=== PATIENT | female | born 1950 | race American Indian/Alaskan Native ===

== ENCOUNTER 2016-11-14 19:27 | Emergency (ER) | payer MEDICARE ==
[2016-11-14 20:00] VITALS: BP 192/101
[2016-11-14 21:07] LABS: Bacteria,Urine 1+ /HPF (Negative); Bilirubin,Urine NEG (Negative); Blood,Urine MOD (Negative); Ketones,Urine NEG (Negative); Leukocyte Esterase,Urine TR (Negative); Mucus,Urine FEW /HPF; Nitrite,Urine NEG (Negative); Urobilinogen,Urine < 2.0 mg/dL (<2.0)
--- NOTE | 2016-11-18 15:03 | ED Elopement Review ---
ED Pt Elopement review - Results review Lab results: Laboratory Tests 11/14/16 20:15 Urine Color Yellow Urine Turbidity Clear Urine pH 5.0 Ur Specific [place] 1.017 Urine Protein 30 mg/dl Urine Glucose (UA) >=500 Urine Ketones Neg Urine Blood Mod Urine Nitrite Neg Urine Bilirubin Neg Urine Urobilinogen < 2.0 Ur Leukocyte Esterase Tr Urine WBC (Auto) 1.0 Urine RBC (Auto) 3.0 U Epithel Cells (Auto) 1.0 Urine Bacteria (Auto) 1+ Urine Mucus Few - Call Back decision Pt Call Back Decision: Pt to F/U with PMD
== END 2016-11-15 05:42 | disposition left against medical advice (07) ==
LOC: ED 19:27
DX: Z53.21 Procedure and treatment not carried out due to patient leaving prior to being seen by health care provider (principal)
CPT/HCPCS: 81001

== ENCOUNTER 2020-10-26 10:58 | Emergency (ER) | payer MEDICARE ==
[2020-10-26 13:05] VITALS: BP 117/94
--- NOTE | 2020-10-26 15:10 | XRay Report ---
Left shoulder 3 views INDICATION: Fall FINDINGS: There is glenohumeral and AC degenerative change. Enthesophyte extending inferiorly from th e acromion. No displaced fracture or dislocation Signer Name: Terrell Couch MD Signed: 10/26/2020 3:06 PM Workstation Name: [id number]
--- NOTE | 2020-10-26 15:33 | Emergency Department Report ---
ED Fall HPI - General Chief Complaint: Fall Stated Complaint: PAIN/FALL YESTERDAY Time Seen by Provider: 10/26/20 13:55 Source: patient Mode of arrival: Wheelchair - History of Present Illness Initial Comments: Pt is 70 yo female who presents to the ED with c/o fall that occurred last night. she states she tripped over her feet and fell on the floor. she states she hit her head on a shoe rack. she denies any ROBERT. she states she is experiencing left shoulder pain and had some mild nausea earlier. she denies any LOC, vomiting, vision changes, numbness, weakness, bowel or bladder incontinence, neck pain, back pain, or any other injury. allergy: codeine. she states she is on eliquis. - Related Data Previous Rx's Medication Instructions Recorded Last Taken Type Digoxin [Lanoxin] 0.125 mg PO DAILY@1700 #30 tablet 07/16/15 Unknown Rx Spironolactone [Aldactone] 12.5 mg PO QDAY #30 tablet 07/16/15 Unknown Rx carvediloL [Coreg] 12.5 mg PO BID 60 Days tablet 07/16/15 Unknown Rx lisinopriL [Zestril TAB] 20 mg PO BID #60 tablet 07/16/15 Unknown Rx Acetaminophen [Tylenol] 650 mg PO Q8HR PRN #20 capsule 10/26/20 Unknown Rx Allergies Allergy/AdvReac Type Severity Reaction Status Date / Time codeine Allergy Swelling Verified 07/08/15 00:01 ED Review of Systems ROS: Stated complaint: PAIN/FALL YESTERDAY Other details as noted in HPI Comment: All other systems reviewed and negative ED Past Medical Hx - Past Medical History Previous Medical History?: Yes Hx Hypertension: Yes Hx Congestive Heart Failure: Yes Hx Diabetes: Yes Hx Psychiatric Treatment: Yes (depression) Hx COPD: Yes Additional medical history: sleep apnea - Surgical History Past Surgical History?: Yes Hx Coronary Stent: Yes Additional Surgical History: partial hysterectomy - Social History Smoking Status: Never Smoker Substance Use Type: None - Medications Home Medications: Home Medications Medication Instructions Recorded Confirmed Last Taken Type Digoxin [Lanoxin] 0.125 mg PO DAILY@1700 #30 tablet 07/16/15 Unknown Rx Spironolactone [Aldactone] 12.5 mg PO QDAY #30 tablet 07/16/15 Unknown Rx carvediloL [Coreg] 12.5 mg PO BID 60 Days tablet 07/16/15 Unknown Rx lisinopriL [Zestril TAB] 20 mg PO BID #60 tablet 07/16/15 Unknown Rx Acetaminophen [Tylenol] 650 mg PO Q8HR PRN #20 capsule 10/26/20 Unknown Rx ED Physical Exam - General Limitations: Physical Limitation General appearance: alert, in no apparent distress - Head Head exam: Present: atraumatic, normocephalic - Eye Eye exam: Present: normal appearance, PERRL, EOMI. Absent: periorbital swelling, periorbital tenderness Pupils: Present: normal accommodation - ENT ENT exam: Present: mucous membranes moist - Neck Neck exam: Present: normal inspection, full ROM. Absent: tenderness, meningismus - Respiratory Respiratory exam: Present: normal lung sounds bilaterally. Absent: respiratory distress, wheezes, rales, rhonchi, stridor, chest wall tenderness, accessory muscle use, decreased breath sounds, prolonged expiratory - Cardiovascular Cardiovascular Exam: Present: regular rate, normal rhythm, normal heart sounds. Absent: systolic murmur, diastolic murmur, rubs, gallop - Extremities Exam Extremities exam: Present: normal inspection, full ROM, other (no bony ttp of the LUE, FROM of the LUE, no deformity, no sulcus sign, clavicles are equal, no clavicular ttp, neurovascularly intact, there is a left AV graft with palpable thrill). Absent: tenderness - Back Exam Back exam: Present: normal inspection, full ROM. Absent: paraspinal tenderness, vertebral tenderness - Neurological Exam Neurological exam: Present: alert, oriented X3, CN II-XII intact, normal gait. Absent: motor sensory deficit - Psychiatric Psychiatric exam: Present: normal affect, normal mood - Skin Skin exam: Present: warm, dry, intact ED Course Vital Signs 10/26/20 13:03 Temperature 98.1 F Pulse Rate 98 H Respiratory 20 Rate Blood Pressure 117/94 O2 Sat by Pulse 95 Oximetry ED Medical Decision Making - Radiology Data Radiology results: report reviewed Ordering Physician: JOE SILVA Date of Service: 10/26/20 Procedure(s): CT head/brain wo con Accession Number(s): [id number] cc: JOE SILVA CT head without contrast INDICATION : Fall, hit head.. TECHNIQUE: Axial imaging performed from the skull apex through the skull base without the use of contrast. All CT scans at this location are performed using CT dose reduction for ALARA by means of automated exposure control. COMPARISON: None FINDINGS: No evidence of intracranial hemorrhage. No mass effect, midline shift, or herniation. The ventricles appear symmetric and age-appropriate in size. Periventricular hypodensities are suggestive of chronic microvascular ischemic change. No evidence of displaced skull fracture. Paranasal sinuses and mastoid air cells are well aerated and not opacified. Located within the fat overlying the right temporalis muscle is a 1.2 x 0.7 cm soft tissue density (Hounsfield units 45). IMPRESSION: No evidence of acute intracranial injury. Located within the fat overlying the right temporalis muscle is a 1.2 x 0.7 cm soft tissue density. This is of unclear significance or etiology. Question whether the patient sustained injury in this region as a small superficial hematoma is a possibility. If patient has not had any trauma to this region, consider a nonemergent MRI with and without contrast to assess for any enhancement and for further characterization. Signer Name: Ventura Sol MD Signed: 10/26/2020 3:50 PM Workstation Name: [id number] Transcribed By: ROD Dictated By: VENTURA SOL MD Electronically Authenticated By: VENTURA SOL MD Signed Date/Time: 10/26/20 1550 DD/ 1543 TD/TT: Print Ordering Physician: JOE SILVA Date of Service: 10/26/20 Procedure(s): XR shoulder 2+V LT Accession Number(s): [id number] cc: JOE SILVA Fluoro Time In Minutes: Left shoulder 3 views INDICATION: Fall FINDINGS: There is glenohumeral and AC degenerative change. Enthesophyte extending inferiorly from the acromion. No displaced fracture or dislocation Signer Name: Terrell Couch MD Signed: 10/26/2020 3:06 PM Workstation Name: [id number] Transcribed By: FLOWER Dictated By: RENEE COUCH MD Electronically Authenticated By: RENEE COUCH MD Signed Date/Time: 10/26/20 1506 DD/ 1503 TD/TT: Print - Medical Decision Making Pt is 70 yo female who presents to the ED with c/o fall that occurred last night. she states she tripped over her feet and fell on the floor. she states she hit her head on a shoe rack. she denies any ROBERT. she states she is experiencing left shoulder pain and had some mild nausea earlier. she denies any LOC, vomiting, vision changes, numbness, weakness, bowel or bladder incontinence, neck pain, back pain, or any other injury. allergy: codeine. she states she is on eliquis. Vitals are normal. On exam:no bony ttp of the LUE, FROM of the LUE, no deformity, no sulcus sign, clavicles are equal, no clavicular ttp, neurovascularly intact, there is a left AV graft with palpable thrill, no neuro deficits on exam, she is able to ambulate. X-ray left shoulder: FINDINGS: There is glenohumeral and AC degenerative change. Enthesophyte extending inferiorly from the acromion. No displaced fracture or dislocation. CT head without contrast: No evidence of acute intracranial injury. Located within the fat overlying the right temporalis muscle is a 1.2 x 0.7 cm soft tissue density.This is of unclear significance or etiology. Question whether the patient sustained injury in this region as a small superficial hematoma is a possibility. If patient has not had any trauma to this region, consider a nonemergent MRI with and without contrast to assess for any enhancement and for further characterization. No signs of hematoma on scalp examination, patient given her CT report to follow-up with her primary care doctor. Discussed all results with patient answer questions. Patient given prescription for Tylenol. Advised patient Please take medication as prescribed. Follow-up with your primary care doctor for reexamination. Return to emergency room for any new or worsening symptoms. please take CT report to your primary care doctor Critical care attestation.: If time is entered above; I have spent that time in minutes in the direct care of this critically ill patient, excluding procedure time. ED Disposition Clinical Impression: Superficial swelling of scalp Fall Qualifiers: Encounter type: initial encounter Qualified Code(s): W19.XXXA - Unspecified fall, initial encounter Left shoulder pain Qualifiers: Chronicity: acute Qualified Code(s): M25.512 - Pain in left shoulder Disposition: - TO HOME OR SELFCARE Is pt being admited?: No Does the pt Need Aspirin: No Condition: Stable Instructions: Shoulder Pain, Head Injury, Adult Additional Instructions: Please take medication as prescribed. Follow-up with your primary care doctor for reexamination. Return to emergency room for any new or worsening symptoms. please take CT report to your primary care doctor Prescriptions: Acetaminophen [Tylenol] 650 mg PO Q8HR PRN #20 capsule PRN Reason: pain Referrals: PRIMARY CARE, [Primary Care Provider] - 2-3 Days Time of Disposition: 16:06 Print Language: WELSH
--- NOTE | 2020-10-26 15:54 | Cat Scan Report ---
CT head without contrast INDICATION : Fall, hit head.. TECHNIQUE: Axial imaging performed from the skull apex through the skull base without the use of con trast. All CT scans at this location are performed using CT dose reduction for ALARA by means of aut omated exposure control. COMPARISON: None FINDINGS: No evidence of intracranial hemorrhage. No mass effect, midline shift, or herniation. The ventricles appear symmetric and age-appropriate in size. Periventricular hypodensities are suggestive of chronic microvascular ischemic change. No evidence of displaced skull fracture. Paranasal sinuses and mastoi d air cells are well aerated and not opacified. Located within the fat overlying the right temporalis muscle is a 1.2 x 0.7 cm soft tissue density (H ounsfield units 45). IMPRESSION: No evidence of acute intracranial injury. Located within the fat overlying the right temporalis muscle is a 1.2 x 0.7 cm soft tissue density. T his is of unclear significance or etiology. Question whether the patient sustained injury in this reg ion as a small superficial hematoma is a possibility. If patient has not had any trauma to this regio n, consider a nonemergent MRI with and without contrast to assess for any enhancement and for further characterization. Signer Name: Ventura Kuhn MD Signed: 10/26/2020 3:50 PM Workstation Name: [id number]
== END 2020-10-27 04:18 | disposition home or self-care (01) ==
LOC: ED 10:58
DX: M25.512 Pain in left shoulder (principal); R22.0 Localized swelling, mass and lump, head; W19.XXXA Unspecified fall, initial encounter; Y93.89 Activity, other specified; Y92.89 Other specified places as the place of occurrence of the external cause; Y99.8 Other external cause status; I11.0 Hypertensive heart disease with heart failure; I50.9 Heart failure, unspecified; E11.8 Type 2 diabetes mellitus with unspecified complications; F32.9 Major depressive disorder, single episode, unspecified; J44.9 Chronic obstructive pulmonary disease, unspecified; Z98.890 Other specified postprocedural states; Z88.5 Allergy status to narcotic agent
CPT/HCPCS: 70450; 99284

== ENCOUNTER 2020-11-16 09:06 | Inpatient (IN) | payer MEDICARE ==
--- NOTE | 2020-11-16 10:52 | Event Note ---
ED Screening Note ED Screening Note: Patient sent from dialysis due to low oxygen saturation she was unable to get her dialysis treatment today She states that she has shortness of breath, chest pain, nausea She states that she typically experiences the symptoms She states that she has a history of COPD and reports that she was diagnosed with COVID-19 on 11/11/2020 She states that she did get vaccinated for Covid Oxygen saturation is 96% on room air on repeat in exam room This initial assessment/diagnostic orders/clinical plan/treatment(s) is/are subject to change based on patients health status, clinical progression and re- assessment by fellow clinical providers in the ED. Further treatment and workup at subsequent clinical providers discretion. Patient/guardian urged not to elope from the ED as their condition may be serious if not clinically assessed and managed. Initial orders include: Labs, x-ray, EKG
--- NOTE | 2020-11-16 11:23 | XRay Report ---
CHEST 2 VIEWS INDICATION / CLINICAL INFORMATION: Chest pain and shortness of breath. COMPARISON: None available. FINDINGS: SUPPORT DEVICES: None. HEART / MEDIASTINUM: Mild cardiomegaly. LUNGS / PLEURA: Mild interstitial pulmonary edema. ADDITIONAL FINDINGS: No significant additional findings. IMPRESSION: 1. Findings likely indicating CHF as above. Signer Name: Damian De La Vega MD Signed: 11/16/2020 11:19 AM Workstation Name: [id number]
[2020-11-16 11:57] LABS: Albumin 3.5 g/dL (3.9-5); Calcium 8.9 mg/dL (8.4-10.2)
[2020-11-16 12:10] LABS: Chol/HDL Ratio 4.05 %
--- NOTE | 2020-11-16 12:22 | Emergency Department Report ---
ED Shortness of Breath HPI - General Chief Complaint: Medical Clearance Stated Complaint: SOB Time Seen by Provider: 11/16/20 10:51 Source: patient, EMS Mode of arrival: Stretcher Limitations: No Limitations - History of Present Illness Initial Comments: Chief complaint: I have got Covid." HPI: Is a 70-year-old female with history of end-stage renal disease on hemodialysis Sunday, COPD, CHF who presents with Covid symptoms since Sunday 1 week ago. She has productive cough diarrhea nausea headache body aches malaise. She was diagnosed with COVID-19 at dialysis clinic on . Last hemodialysis treatment occurred on Sunday. Today her oxygen saturation was low at the dialysis clinic. She referred to emergency department. She just feels overall unwell. She states that she did receive Covid vaccination. Customer Support Associate Dr. James PCP Dr. Andrei Bah MD Complaint: shortness of breath, cough -: Gradual, week(s) (1 week) Severity: moderate Consistency: constant Improves With: rest Worsens With: exertion Known History Of: COPD, congestive heart failure, other (End-stage renal disease) Context: other (Recent diagnosis of COVID-19) Associated Symptoms: cough, sputum production, other (Nausea diarrhea) Treatments Prior to Arrival: other (Was evaluated at hemodialysis center) - Related Data Previous Rx's Medication Instructions Recorded Last Taken Type Digoxin [Lanoxin] 0.125 mg PO DAILY@1700 #30 tablet 07/16/15 Unknown Rx Spironolactone [Aldactone] 12.5 mg PO QDAY #30 tablet 07/16/15 Unknown Rx carvediloL [Coreg] 12.5 mg PO BID 60 Days tablet 07/16/15 Unknown Rx lisinopriL [Zestril TAB] 20 mg PO BID #60 tablet 07/16/15 Unknown Rx Acetaminophen [Tylenol] 650 mg PO Q8HR PRN #20 capsule 10/26/20 Unknown Rx Allergies Allergy/AdvReac Type Severity Reaction Status Date / Time codeine Allergy Swelling Verified 07/08/15 00:01 ED Review of Systems ROS: Stated complaint: SOB Other details as noted in HPI Comment: All other systems reviewed and negative Constitutional: denies: fever, malaise Respiratory: cough Gastrointestinal: nausea, diarrhea Neurological: headache ED Past Medical Hx - Past Medical History Previous Medical History?: Yes Hx Hypertension: Yes Hx Congestive Heart Failure: Yes Hx Diabetes: Yes Hx Renal Disease: Yes (End-stage renal disease on hemodialysis Sunday) Hx Psychiatric Treatment: Yes (depression) Hx COPD: Yes Additional medical history: sleep apnea - Surgical History Past Surgical History?: Yes Hx Coronary Stent: Yes Additional Surgical History: partial hysterectomy - Social History Smoking Status: Never Smoker Substance Use Type: None - Medications Home Medications: Home Medications Medication Instructions Recorded Confirmed Last Taken Type Digoxin [Lanoxin] 0.125 mg PO DAILY@1700 #30 tablet 07/16/15 Unknown Rx Spironolactone [Aldactone] 12.5 mg PO QDAY #30 tablet 07/16/15 Unknown Rx carvediloL [Coreg] 12.5 mg PO BID 60 Days tablet 07/16/15 Unknown Rx lisinopriL [Zestril TAB] 20 mg PO BID #60 tablet 07/16/15 Unknown Rx Acetaminophen [Tylenol] 650 mg PO Q8HR PRN #20 capsule 10/26/20 Unknown Rx ED Physical Exam - General Limitations: No Limitations General appearance: alert, in no apparent distress, other (Nontoxic but frequent cough appears mildly ill) - Head Head exam: Present: atraumatic, normocephalic - Eye Eye exam: Present: normal appearance - ENT ENT exam: Present: mucous membranes moist - Neck Neck exam: Present: normal inspection, full ROM - Respiratory Respiratory exam: Present: rales, rhonchi, decreased breath sounds. Absent: respiratory distress, accessory muscle use, prolonged expiratory - Cardiovascular Cardiovascular Exam: Present: regular rate, normal rhythm, normal heart sounds. Absent: systolic murmur, diastolic murmur, rubs, gallop - GI/Abdominal GI/Abdominal exam: Present: soft, normal bowel sounds. Absent: distended, tenderness, guarding, rebound - Extremities Exam Extremities exam: Present: pedal edema - Neurological Exam Neurological exam: Present: alert, oriented X3 - Psychiatric Psychiatric exam: Present: normal affect, normal mood - Skin Skin exam: Present: warm, dry, intact, normal color. Absent: rash ED Course Vital Signs 11/16/20 10:22 Temperature 98.8 F Pulse Rate 94 H Respiratory 16 Rate Blood Pressure 118/94 [Right] O2 Sat by Pulse 98 Oximetry ED Medical Decision Making - Lab Data Result diagrams: 11/16/20 11:20 - EKG Data -: EKG Interpreted by Me - EKG Data When compared to previous EKG there are: no significant change 11/16/20 12:23 Atrial fibrillation rate 90 bpm left axis deviation left bundle branch block prolonged QTC no ST elevation 11/16/20 12:25 EKG unchanged from July 08, 2015 - Radiology Data Radiology results: report reviewed Study Comments [facility] [address] [place] [address] XRay Report Signed Patient: SANNA REDD MR#: [id number] : 1950 Acct:[id number] Age/Sex: 70 / F ADM Date: 11/16/20 Loc: ED Attending Dr: Ordering Physician: JOE SILVA Date of Service: 11/16/20 Procedure(s): XR chest routine 2V Accession Number(s): [id number] cc: JOE SILVA Fluoro Time In Minutes: CHEST 2 VIEWS INDICATION / CLINICAL INFORMATION: Chest pain and shortness of breath. COMPARISON: None available. FINDINGS: SUPPORT DEVICES: None. HEART / MEDIASTINUM: Mild cardiomegaly. LUNGS / PLEURA: Mild interstitial pulmonary edema. ADDITIONAL FINDINGS: No significant additional findings. IMPRESSION: 1. Findings likely indicating CHF as above. Signer Name: Damian De La Vega MD Signed: 11/16/2020 11:19 AM Workstation Name: [id number] Transcribed By: ADY Dictated By: Damian De La Vega MD Electronically Authenticated By: Damian De La Vega MD Signed Date/Time: 11/16/20 111 DD/ 111 TD/TT - Medical Decision Making 1. COVID-19 infection: Patient likely had exertional hypoxia. This finding does confer additional risk of clinical deterioration. At rest room air saturation 90%. IV dexamethasone, IV antibiotics initiated emergency department. Covid markers ordered. 2. End-stage renal disease on hemodialysis: Patient does have pulmonary congestion on chest radiograph unclear if chest radiograph findings are due to hypervolemia or Covid pneumonia. I have consulted financial service professional Dr. [place] associate of Dr. James to arrange for hemodialysis treatment. Patient is admitted to the hospitalist service in stable condition. Critical care attestation.: If time is entered above; I have spent that time in minutes in the direct care of this critically ill patient, excluding procedure time. ED Disposition Clinical Impression: COPD exacerbation, CHF exacerbation, COVID-19, ESRD on hemodialysis Disposition: 09 ADMITTED INPATIENT Is pt being admited?: Yes Does the pt Need Aspirin: No Condition: Fair Instructions: Chronic Bronchitis (ED)
[2020-11-16] MEDS ORDERED: SODIUM CHLORIDE 0.9% 100 ML IV PRN (12:42)
[2020-11-16 12:43] LABS: Hematocrit 37.9 % (30.3-42.9); Hemoglobin 12.1 gm/dl (10.1-14.3); Mean Corpuscular HGB Conc 32 % (30-34); Mean Corpuscular Volume 81 fl (79-97); Platelet Count 173 K/mm3 (140-440); Red Cell Distribution Width 14.4 % (13.2-15.2)
--- NOTE | 2020-11-16 13:21 | History and Physical Report ---
History of Present Illness Chief complaint: I cannot breathe History of present illness: 70 YO Female with ESRD on HD(T,R,Sa), COPD, CHF, HTN, CAD S/P Stent Placement presents to ED for evaluation. Patient reports "I cannot breathe". Patient states that she has experienced shortness of breath over the past 1 week with persistently worsening symptoms over the past 3 days. Patient was diagnosed with coronavirus infection 5 days ago. Patient presented to her dialysis clinic for her routine scheduled dialysis session and upon arrival the patient was found to be in distress and was found to have a pulse oximetry of 89%. EMS was notified and upon arrival the patient was found to be in distress and subsequently transported to [facility] for further care and evaluation of the aforementioned symptoms. The patient was seen and evaluated in the emergency department. All lab and imaging studies reviewed. Patient found to have a pulse oximetry of 88% on room air with exertion which is consistent with acute hypoxemic respiratory failure. Chest x-ray revealed bilateral pneumonia. Patient admitted to medical floor and initiated on coronavirus protocol. Patient denies fever, chills, chest pain, palpitation, productive cough, skin rash, recent ill contacts. Patient states that she is fully vaccinated against COVID-19. Prior admission on 07/08/2015 reviewed. All medication listed at time of admission has been reconciled. Advanced care planning conducted in ED. Past History Past Medical History: CAD, COPD, ESRD, heart failure, hypertension Past Surgical History: hysterectomy, Other (Cardiac stent placement) Social history: single. denies: smoking, alcohol abuse, prescription drug abuse, IV drug use Family history: diabetes, hypertension Medications and Allergies Allergies Allergy/AdvReac Type Severity Reaction Status Date / Time codeine Allergy Swelling Verified 07/08/15 00:01 Home Medications Medication Instructions Recorded Confirmed Last Taken Type Digoxin [Lanoxin] 0.125 mg PO DAILY@1700 #30 tablet 07/16/15 Unknown Rx Spironolactone [Aldactone] 12.5 mg PO QDAY #30 tablet 07/16/15 Unknown Rx carvediloL [Coreg] 12.5 mg PO BID 60 Days tablet 07/16/15 Unknown Rx lisinopriL [Zestril TAB] 20 mg PO BID #60 tablet 07/16/15 Unknown Rx Acetaminophen [Tylenol] 650 mg PO Q8HR PRN #20 capsule 10/26/20 Unknown Rx Active Meds: Active Medications Sodium Chloride (Nacl 0.9%) 100 mls @ 999 mls/hr IV CAPRICE PRN PRN Reason: Hypotension Review of Systems Constitutional: weakness, malaise, lethargy, no weight loss, no weight gain, no fever Ears, nose, mouth and throat: no ear pain, no ear discharge, no decreased hearing, no nose pain, no nasal congestion Cardiovascular: no chest pain, no orthopnea, no rapid/irregular heart beat, no edema Respiratory: shortness of breath, dyspnea on exertion, no cough with sputum, no congestion, no wheezing Gastrointestinal: no nausea, no vomiting, no diarrhea Genitourinary Female: no pelvic pain, no flank pain, no dysuria, no urinary frequency, no urgency Rectal: no pain, no incontinence, no bleeding Musculoskeletal: no neck stiffness, no neck pain, no shooting arm pain, no low back pain, no shooting leg pain Integumentary: no rash, no pruritis, no redness, no wounds, no jaundice Neurological: no transient paralysis, no paralysis, no weakness, no numbness, no tingling, no syncope, no tremors Psychiatric: no anxiety, no change in sleep habits, no sleep disturbances, no hypersomnia, no change in appetite, no disorientation Endocrine: no cold intolerance, no polyphagia, no polydipsia, no nocturia, no excessive sweating, no flushing Hematologic/Lymphatic: no easy bruising, no easy bleeding Allergic/Immunologic: no urticaria, no allergic rhinitis, no wheezing Exam - Constitutional Vitals: Temp Pulse Resp BP Pulse Ox 98.8 F 94 H 16 118/94 98 11/16/20 10:22 11/16/20 10:22 11/16/20 10:22 11/16/20 10:11/16/20 10:22 General appearance: Present: mild distress - EENT Eyes: Present: PERRL ENT: hearing intact, clear oral mucosa - Neck Neck: Present: supple, normal ROM - Respiratory Respiratory effort: labored, accessory muscle use Respiratory: bilateral: diminished, rhonchi - Cardiovascular Heart Sounds: Present: S1 & S2. Absent: rub, click - Extremities Extremities: pulses symmetrical, No edema Peripheral Pulses: within normal limits - Abdominal General gastrointestinal: Present: soft, non-tender, non-distended, normal bowel sounds Female genitourinary: Present: normal - Integumentary Integumentary: Present: clear, warm, dry - Musculoskeletal Musculoskeletal: gait normal, strength equal bilaterally - Psychiatric Psychiatric: appropriate mood/affect, intact judgment & insight - Neurologic Neurologic: CNII-XII intact, moves all extremities HEART Score - HEART Score Troponin: Troponin T 0.070 ng/mL (0.00-0.029) H 11/16/20 11:20 Results - Labs CBC & Chem 7: 11/16/20 11:20 11/16/20 12:37 Labs: Abnormal lab results 11/16/20 11/16/20 Range/Units 11:20 11:20 MCH 26 L (28-32) pg Sodium 134 L (137-145) mmol/L Chloride 91.6 L (98-107) mmol/L BUN 38 H (7-17) mg/dL Creatinine 4.4 H (0.6-1.2) mg/dL Troponin T 0.070 H (0.00-0.029) ng/mL Albumin 3.5 L (3.9-5) g/dL HDL Cholesterol 37 L (40-59) mg/dL Assessment and Plan - Patient Problems (1) Acute hypoxemic respiratory failure Current Visit: Yes Status: Acute Plan to address problem: Chest x-ray, supplemental oxygen, pulse oximetry, nebulizer therapy, high flow supplemental oxygen if patient is unable to maintain pulse oximetry on submental oxygen via nasal cannula. (2) Suspected 2019 novel coronavirus infection Current Visit: Yes Status: Acute Plan to address problem: Coronavirus protocol: IV steroid therapy, IV antibiotic therapy, supplemental oxygen, pulse oximetry, nebulizer therapy, prone positioning while in bed, vitamin C therapy, vitamin D therapy, zinc therapy, prophylactic anticoagulation (3) Pneumonia Current Visit: Yes Status: Acute Plan to address problem: Pneumonia protocol: Chest x-ray, CBC, CMP, IV antibiotic therapy, supplemental oxygen, pulse oximetry, nebulizer therapy, blood culture. (4) ESRD on hemodialysis Current Visit: Yes Status: Acute Plan to address problem: Nephrology team consulted in ED, dialysis as per renal team, avoid nephrotoxic agents. (5) DVT prophylaxis Current Visit: Yes Status: Acute Plan to address problem: SCD to bilateral lower extremities while in bed, prophylactic anticoagulation (6) Advance care planning Current Visit: Yes Status: Acute Plan to address problem: Disease education conducted, care plan discussed, diagnosis discussed, prognosis discussed, patient is full code, patient knowledges understanding agree with care plan, +30 minutes.
[2020-11-16] MEDS ORDERED: ALBUTEROL 2.5 MG/3 ML NEBU IH PRN (13:23)
[2020-11-16] MEDS ORDERED: ACETAMINOPHEN 325 MG TAB PO PRN (13:23)
[2020-11-16] MEDS ORDERED: HYDROmorphone 1 MG/1 ML INJ IV PRN (13:23)
[2020-11-16 13:58] LABS: C-Reactive Protein 7.2 mg/dL (0.00-1.30)
[2020-11-16 15:42] LABS: Band Neutrophils # (Manual) 0.2 K/mm3; Hypochromasia 1+; Total Cells Counted 100
[2020-11-16 15:45] LABS: Ovalocytes 1+; Poikilocytosis 1+; Schistocytes Rare
--- NOTE | 2020-11-16 16:48 | Consultation ---
History of Present Illness - Reason for Consult Consult date: 11/16/20 end stage renal disease - History of Present Illness This is a 70-year-old woman with end-stage renal disease on hemodialysis, TTS schedule who was diagnosed with Covid last week. She presented to the dialysis unit for routine dose of but was sent to the emergency department due to hypoxia. She was subsequently admitted for further workup and nephrology was consulted for ESRD management. Medications and Allergies Allergies Allergy/AdvReac Type Severity Reaction Status Date / Time codeine Allergy Swelling Verified 07/08/15 00:01 Home Medications Medication Instructions Recorded Confirmed Last Taken Type Digoxin [Lanoxin] 0.125 mg PO DAILY@1700 #30 tablet 07/16/15 Unknown Rx Spironolactone [Aldactone] 12.5 mg PO QDAY #30 tablet 07/16/15 Unknown Rx carvediloL [Coreg] 12.5 mg PO BID 60 Days tablet 07/16/15 Unknown Rx lisinopriL [Zestril TAB] 20 mg PO BID #60 tablet 07/16/15 Unknown Rx Acetaminophen [Tylenol] 650 mg PO Q8HR PRN #20 capsule 10/26/20 Unknown Rx Active Meds: Active Medications Acetaminophen (Acetaminophen 325 Mg Tab) 650 mg PO Q4H PRN PRN Reason: Pain MILD(1-3)/Fever >100.5/ROBERT Albuterol (Albuterol 2.5 Mg/3 Ml Nebu) 2.5 mg IH Q4HRT PRN PRN Reason: Shortness Of Breath Ascorbic Acid (Ascorbic Acid 500 Mg Tab) 500 mg PO BID ALAN Carvedilol (Carvedilol 12.5 Mg Tab) 12.5 mg PO BID ALAN Cholecalciferol (Cholecalciferol (Vit D3) 1000 Unit (25 Mcg) Tab) 1,000 unit PO QDAY ALAN Digoxin (Digoxin 0.25 Mg Tab) 0.125 mg PO DAILY@1700 ALAN Heparin Sodium (Porcine) (Heparin 5,000 Unit/1 Ml Vial) 5,000 unit SUB-Q Q12HR ALAN Hydromorphone HCl (Hydromorphone 1 Mg/1 Ml Inj) 0.5 mg IV Q12H PRN PRN Reason: Pain , Severe (7-10) Sodium Chloride (Nacl 0.9%) 100 mls @ 999 mls/hr IV CAPRICE PRN PRN Reason: Hypotension Ceftriaxone Sodium (Rocephin/Ns 2 Gm/100 Ml) 2 gm in 100 mls @ 200 mls/hr IV Q24H [facility]; Protocol Azithromycin (Zithromax/Ns) 500 mg in 250 mls @ 250 mls/hr IV Q24H ALAN; Protocol Lisinopril (Lisinopril 20 Mg Tab) 20 mg PO BID [facility] Methylprednisolone Sodium Succinate (Methylprednisolone Sod Succinate 40 Mg/1 Ml Inj) 40 mg IV Q8H ALAN Ondansetron HCl (Ondansetron 4 Mg/2 Ml Inj) 4 mg IV Q8H PRN PRN Reason: Nausea And Vomiting Oxycodone/Acetaminophen (Oxycodone /Acetaminophen 5-325mg Tab) 1 tab PO Q12H PRN PRN Reason: Pain, Moderate (4-6) Sodium Chloride (Sodium Chloride 0.9% 10 Ml Flush Syringe) 10 ml IV BID ALAN Sodium Chloride (Sodium Chloride 0.9% 10 Ml Flush Syringe) 10 ml IV PRN PRN PRN Reason: LINE FLUSH Spironolactone (Spironolactone 25 Mg Tab) 12.5 mg PO QDAY ALAN Zinc Sulfate (Zinc Sulfate 220 Mg Cap) 220 mg PO BID [facility] Review of Systems Constitutional: fever, malaise Respiratory: cough Gastrointestinal: diarrhea Exam - Vital Signs Vital signs: Vital Signs Temp Pulse Resp BP Pulse Ox 98.8 F 94 H 16 118/94 98 11/16/20 10:22 11/16/20 10:22 11/16/20 10:22 11/16/20 10:22 11/16/20 10:22 - Physical Exam Narrative exam: Deferred to reduce transmission risk, primary team exam reviewed. Results - Lab Results 11/16/20 11:20 11/16/20 12:37 Most recent lab results Calcium 8.9 mg/dL (8.4-10.2) 11/16/20 11:20 Assessment and Plan Assessment - End-stage renal disease on hemodialysis - Hypertension - COVID infection - Acute resp failure Recommendations - HD today, continue TTS - Monitor labs and volume status daily and assess need for additional dialysis session - Continue home antihypertensives - Hold antihypertensives on hemodialysis days for systolics less than 160 - No indication for Epogen with HD - ESRD diet with 1.4 g/kg per day protein - Renally dose medication for creatinine clearance less than 15 cc/min
--- NOTE | 2020-11-16 17:50 | Electrocardiograph Report ---
[facility] Test Date: 2020-11-16 Test Time: 11:16:27 Pat Name: SANNA REDD Department: Room: [facility] Gender: F Steel Chipper: DES : 1950 Requested By: YOLANDE MORALES Order Number: [id number] Reading MD: Ty Santos Measurements Intervals [place] Rate: 89 P: CT: QRS: -56 QRSD: 172 T: 133 QT: 489 QTc: 594 Interpretive Statements Atrial fibrillation Left bundle branch block No previous ECG available for comparison Electronically Signed On 11-16-2020 17:50:29 EDT by Ty Santos
[2020-11-16] MEDS: HEPARIN 5,000 UNIT/1 ML VIAL SUB-Q SCH (18:49)
[2020-11-16] MEDS: DIGOXIN 0.25 MG TAB PO SCH (18:50)
[2020-11-16] MEDS: ONDANSETRON 4 MG/2 ML INJ IV PRN (20:39)
[2020-11-16] MEDS: methylPREDNISolone Sod Succinate 40 MG/1 ML INJ IV SCH (23:53)
[2020-11-17] MEDS: carvediloL 12.5 MG TAB PO SCH ×3 (00:18→23:18)
[2020-11-17] MEDS: HEPARIN 5,000 UNIT/1 ML VIAL SUB-Q SCH ×3 (00:18→23:17)
[2020-11-17] MEDS: cefTRIAXone/NS 2 GM/100 ML 2 GM/100 ML BAG IV SCH ×2 (00:18→14:53)
[2020-11-17] MEDS: methylPREDNISolone Sod Succinate 40 MG/1 ML INJ IV SCH ×4 (00:19→23:19)
[2020-11-17] MEDS: ZINC SULFATE 220 MG CAP PO SCH ×3 (00:19→23:18)
[2020-11-17] MEDS: ASCORBIC ACID 500 MG TAB PO SCH ×3 (00:19→23:18)
[2020-11-17] MEDS: LISINOPRIL 20 MG TAB PO SCH ×3 (00:23→23:18)
[2020-11-17] MEDS: AZITHROMYCIN/NS 500 MG/250 ML 500 MG/250 ML BAG IV SCH ×2 (01:34→14:53)
[2020-11-17] MEDS: ONDANSETRON 4 MG/2 ML INJ IV PRN (01:53)
[2020-11-17] MEDS: oxyCODONE /ACETAMINOPHEN 5-325MG TAB PO PRN (03:48)
[2020-11-17] MEDS: CHOLECALCIFEROL (VIT D3) 1000 UNIT (25 mcg) TAB PO SCH (09:55)
[2020-11-17] MEDS: SPIRONOLACTONE 25 MG TAB PO SCH (09:58)
--- NOTE | 2020-11-17 12:44 | Progress Note ---
Assessment and Plan Assessment - End-stage renal disease on hemodialysis - Hypertension - COVID infection - Acute resp failure Recommendations - Continue HD TTS - Monitor labs and volume status daily and assess need for additional dialysis session - Continue home antihypertensives - Hold antihypertensives on hemodialysis days for systolics less than 160 - No indication for Epogen with HD - ESRD diet with 1.4 g/kg per day protein - Renally dose medication for creatinine clearance less than 15 cc/min Subjective Date of service: 11/17/20 Principal diagnosis: Hypoxia Interval history: No complications with HD Objective - Exam Narrative Exam: Deferred to reduce transmission risk, primary team exam reviewed. - Vital Signs Vital signs: Vital Signs - 12hr 11/17/20 11/17/20 11/17/20 00:51 01:01 01:43 Temperature Pulse Rate 100 H 100 H Respiratory 21 22 Rate Blood Pressure 132/76 132/76 Blood Pressure [Right] O2 Sat by Pulse 97 66 L 100 Oximetry 11/17/20 11/17/20 11/17/20 02:01 03:00 04:00 Temperature 97.5 F L 98.4 F Pulse Rate 99 H 82 Respiratory 20 20 Rate Blood Pressure 108/66 Blood Pressure 131/65 [Right] O2 Sat by Pulse 97 99 97 Oximetry 11/17/20 11/17/20 11/17/20 09:57 09:58 10:00 Temperature Pulse Rate 98 H 98 H Respiratory Rate Blood Pressure 112/62 112/62 Blood Pressure [Right] O2 Sat by Pulse 98 Oximetry - Lab 11/16/20 11:20 11/16/20 12:37 Most recent lab results Calcium 8.9 mg/dL (8.4-10.2) 11/16/20 11:20 Medications & Allergies - Medications Allergies/Adverse Reactions: Allergies codeine Allergy (Verified 07/08/15 00:01) Swelling Home Medications: Home Medications Medication Instructions Recorded Confirmed Last Taken Type Digoxin [Lanoxin] 0.125 mg PO DAILY@1700 #30 tablet 07/16/15 Unknown Rx Spironolactone [Aldactone] 12.5 mg PO QDAY #30 tablet 07/16/15 Unknown Rx carvediloL [Coreg] 12.5 mg PO BID 60 Days tablet 07/16/15 Unknown Rx lisinopriL [Zestril TAB] 20 mg PO BID #60 tablet 07/16/15 Unknown Rx Acetaminophen [Tylenol] 650 mg PO Q8HR PRN #20 capsule 10/26/20 Unknown Rx Active Medications: Generic Name Dose Route Start Last Admin Trade Name Freq PRN Reason Stop Dose Admin Acetaminophen 650 mg 11/16/20 13:23 Acetaminophen 325 Mg Tab PO Q4H PRN Pain MILD(1-3)/Fever >100.5/ROBERT Albuterol 2.5 mg 11/16/20 13:23 Albuterol 2.5 Mg/3 Ml Nebu IH Q4HRT PRN Shortness Of Breath Ascorbic Acid 500 mg 11/16/20 22:00 11/17/20 09:55 Ascorbic Acid 500 Mg Tab PO 500 mg BID ALAN Administration Carvedilol 12.5 mg 11/16/20 22:00 11/17/20 09:57 Carvedilol 12.5 Mg Tab PO 12.5 mg BID ALAN Administration Cholecalciferol 1,000 unit 11/17/20 10:00 11/17/20 09:55 Cholecalciferol (Vit D3) 1000 Unit (25 Mcg) Tab PO 1,000 unit QDAY ALAN Administration Digoxin 0.125 mg 11/16/20 17:00 11/16/20 18:50 Digoxin 0.25 Mg Tab PO Not Given DAILY@1700 ALAN Heparin Sodium (Porcine) 5,000 unit 11/16/20 15:00 11/17/20 09:55 Heparin 5,000 Unit/1 Ml Vial SUB-Q 5,000 unit Q12HR ALAN Administration Hydromorphone HCl 0.5 mg 11/16/20 13:23 Hydromorphone 1 Mg/1 Ml Inj IV Q12H PRN Pain , Severe (7-10) Sodium Chloride 100 mls @ 999 mls/hr 11/16/20 12:42 Nacl 0.9% IV CAPRICE PRN Hypotension Ceftriaxone Sodium 2 gm in 100 mls @ 200 mls/hr 11/16/20 14:00 11/17/20 00:18 Rocephin/Ns 2 Gm/100 Ml IV 11/20/20 14:29 200 mls/hr Q24H ALAN Administration Protocol Azithromycin 500 mg in 250 mls @ 250 mls/hr 11/16/20 14:00 11/17/20 01:34 Zithromax/Ns IV 11/20/20 14:59 250 mls/hr Q24H ALAN Administration Protocol Lisinopril 20 mg 11/16/20 22:00 11/17/20 09:57 Lisinopril 20 Mg Tab PO 20 mg BID ALAN Administration Methylprednisolone Sodium Succinate 40 mg 11/16/20 14:00 11/17/20 05:12 Methylprednisolone Sod Succinate 40 Mg/1 Ml Inj IV 40 mg Q8H ALAN Administration Ondansetron HCl 4 mg 11/16/20 13:23 11/17/20 01:53 Ondansetron 4 Mg/2 Ml Inj IV 4 mg Q8H PRN Administration Nausea And Vomiting Oxycodone/Acetaminophen 1 tab 11/16/20 13:23 11/17/20 03:48 Oxycodone /Acetaminophen 5-325mg Tab PO 1 tab Q12H PRN Administration Pain, Moderate (4-6) Sodium Chloride 10 ml 11/16/20 22:00 11/17/20 10:16 Sodium Chloride 0.9% 10 Ml Flush Syringe IV 10 ml BID ALAN Administration Sodium Chloride 10 ml 11/16/20 13:23 Sodium Chloride 0.9% 10 Ml Flush Syringe IV PRN PRN LINE FLUSH Spironolactone 12.5 mg 11/17/20 10:00 11/17/20 09:58 Spironolactone 25 Mg Tab PO 12.5 mg QDAY ALAN Administration Zinc Sulfate 220 mg 11/16/20 22:00 11/17/20 09:55 Zinc Sulfate 220 Mg Cap PO 220 mg BID ALAN Administration
[2020-11-17] MEDS ORDERED: ALBUTEROL 8.5 GM MDI INHALATION IH PRN (16:00)
[2020-11-17] MEDS: DIGOXIN 0.25 MG TAB PO SCH (20:03)
--- NOTE | 2020-11-17 21:05 | Progress Note ---
Assessment and Plan - Patient Problems (1) Acute hypoxemic respiratory failure Current Visit: Yes Status: Acute Plan to address problem: Chest x-ray, supplemental oxygen, pulse oximetry, nebulizer therapy, high flow supplemental oxygen if patient is unable to maintain pulse oximetry on submental oxygen via nasal cannula. (2) Suspected 2019 novel coronavirus infection Current Visit: Yes Status: Acute Plan to address problem: Coronavirus protocol: IV steroid therapy, IV antibiotic therapy, supplemental oxygen, pulse oximetry, nebulizer therapy, prone positioning while in bed, vitamin C therapy, vitamin D therapy, zinc therapy, prophylactic anticoagulation (3) Pneumonia Current Visit: Yes Status: Acute Plan to address problem: Pneumonia protocol: Chest x-ray, CBC, CMP, IV antibiotic therapy, supplemental oxygen, pulse oximetry, nebulizer therapy, blood culture. (4) ESRD on hemodialysis Current Visit: Yes Status: Acute Plan to address problem: Nephrology team consulted in ED, dialysis as per renal team, avoid nephrotoxic agents. (5) DVT prophylaxis Current Visit: Yes Status: Acute Plan to address problem: SCD to bilateral lower extremities while in bed, prophylactic anticoagulation (6) Advance care planning Current Visit: Yes Status: Acute Plan to address problem: Disease education conducted, care plan discussed, diagnosis discussed, prognosis discussed, patient is full code, patient knowledges understanding agree with care plan, +30 minutes. History Interval history: 70 YO Female HD #2 with COVID 19,ESRD on HD, Pneumonia complicated by respiratory failure. Pt seen and evaluated in her room. Pt denies pain. No reported nursing events. Hospitalist Physical - Constitutional Vitals: Temp Pulse Resp BP Pulse Ox 98.0 F 99 H 18 117/75 97 11/17/20 20:10 11/17/20 20:10 11/17/20 20:10 11/17/20 20:10 11/17/20 20:10 General appearance: Present: mild distress - EENT Eyes: Present: PERRL, EOM intact ENT: hearing intact - Neck Neck: Present: supple - Respiratory Respiratory effort: labored, accessory muscle use Respiratory: bilateral: diminished - Cardiovascular Rhythm: regular Heart Sounds: Present: S1 & S2 Peripheral Pulses: within normal limits - Abdominal General gastrointestinal: soft, non-tender, non-distended - Integumentary Integumentary: Present: clear, dry - Psychiatric Psychiatric: appropriate mood/affect, cooperative - Neurologic Neurologic: CNII-XII intact HEART Score - HEART Score Troponin: Troponin T 0.070 ng/mL (0.00-0.029) H 11/16/20 11:20 Results - Labs CBC & Chem 7: 11/16/20 11:20 11/16/20 12:37 Labs: Laboratory Last Values WBC 4.7 K/mm3 (4.5-11.0) 11/16/20 11:20 RBC 4.70 M/mm3 (3.65-5.03) 11/16/20 11:20 Hgb 12.1 gm/dl (10.1-14.3) 11/16/20 11:20 Hct 37.9 % (30.3-42.9) 11/16/20 11:20 MCV 81 fl (79-97) 11/16/20 11:20 MCH 26 pg (28-32) L 11/16/20 11:20 MCHC 32 % (30-34) 11/16/20 11:20 RDW 14.4 % (13.2-15.2) 11/16/20 11:20 Plt Count 173 K/mm3 (140-440) 11/16/20 11:20 Add Manual Diff Complete 11/16/20 11:20 Total Counted 100 11/16/20 11:20 Seg Neuts % (Manual) 81.0 % (40.0-70.0) H 11/16/20 11:20 Band Neutrophils % 4.0 % 11/16/20 11:20 Lymphocytes % (Manual) 8.0 % (13.4-35.0) L 11/16/20 11:20 Monocytes % (Manual) 6.0 % (0.0-7.3) 11/16/20 11:20 Myelocytes % 1.0 % 11/16/20 11:20 Nucleated RBC % Not Reportable 11/16/20 11:20 Seg Neutrophils # Man 3.8 K/mm3 (1.8-7.7) 11/16/20 11:20 Band Neutrophils # 0.2 K/mm3 11/16/20 11:20 Lymphocytes # (Manual) 0.4 K/mm3 (1.2-5.4) L 11/16/20 11:20 Abs React Lymphs (Man) 0.0 K/mm3 11/16/20 11:20 Monocytes # (Manual) 0.3 K/mm3 (0.0-0.8) 11/16/20 11:20 Eosinophils # (Manual) 0.0 K/mm3 (0.0-0.4) 11/16/20 11:20 Basophils # (Manual) 0.0 K/mm3 (0.0-0.1) 11/16/20 11:20 Metamyelocytes # 0.0 K/mm3 11/16/20 11:20 Myelocytes # 0.0 K/mm3 11/16/20 11:20 Promyelocytes # 0.0 K/mm3 11/16/20 11:20 Blast Cells # 0.0 K/mm3 11/16/20 11:20 WBC Morphology Not Reportable 11/16/20 11:20 Hypersegmented Neuts Not Reportable 11/16/20 11:20 Hyposegmented Neuts Not Reportable 11/16/20 11:20 Hypogranular Neuts Not Reportable 11/16/20 11:20 Smudge Cells Not Reportable 11/16/20 11:20 Toxic Granulation Not Reportable 11/16/20 11:20 Toxic Vacuolation Not Reportable 11/16/20 11:20 Dohle Bodies Not Reportable 11/16/20 11:20 Pelger-Huet Anomaly Not Reportable 11/16/20 11:20 Gaby Rods Not Reportable 11/16/20 11:20 Platelet Estimate Not Reportable 11/16/20 11:20 Clumped Platelets Not Reportable 11/16/20 11:20 Plt Clumps, EDTA Not Reportable 11/16/20 11:20 Large Platelets Not Reportable 11/16/20 11:20 Giant Platelets Not Reportable 11/16/20 11:20 Platelet Satelliting Not Reportable 11/16/20 11:20 Plt Morphology Comment Not Reportable 11/16/20 11:20 RBC Morphology Not Reportable 11/16/20 11:20 Dimorphic RBCs Not Reportable 11/16/20 11:20 Polychromasia Not Reportable 11/16/20 11:20 Hypochromasia 1+ 11/16/20 11:20 Poikilocytosis 1+ 11/16/20 11:20 Anisocytosis Not Reportable 11/16/20 11:20 Microcytosis Not Reportable 11/16/20 11:20 Macrocytosis Not Reportable 11/16/20 11:20 Spherocytes Not Reportable 11/16/20 11:20 Pappenheimer Bodies Not Reportable 11/16/20 11:20 Sickle Cells Not Reportable 11/16/20 11:20 Target Cells Not Reportable 11/16/20 11:20 Tear Drop Cells Not Reportable 11/16/20 11:20 Ovalocytes 1+ 11/16/20 11:20 Helmet Cells Not Reportable 11/16/20 11:20 Damon-Vermilion Bodies Not Reportable 11/16/20 11:20 Knox Rings Not Reportable 11/16/20 11:20 Claudette Cells Not Reportable 11/16/20 11:20 Bite Cells Not Reportable 11/16/20 11:20 Crenated Cell Not Reportable 11/16/20 11:20 Elliptocytes Not Reportable 11/16/20 11:20 Acanthocytes (Spur) Not Reportable 11/16/20 11:20 Rouleaux Not Reportable 11/16/20 11:20 Hemoglobin C Crystals Not Reportable 11/16/20 11:20 Schistocytes Rare 11/16/20 11:20 Malaria parasites Not Reportable 11/16/20 11:20 Hoang Bodies Not Reportable 11/16/20 11:20 Hem Pathologist Commnt No 11/16/20 11:20 D-Dimer 303.87 ng/mlDDU (0-234) H 11/16/20 12:37 Sodium 134 mmol/L (137-145) L 11/16/20 11:20 Potassium 3.9 mmol/L (3.6-5.0) 11/16/20 11:20 Chloride 91.6 mmol/L (98-107) L 11/16/20 11:20 Carbon Dioxide 30 mmol/L (22-30) 11/16/20 11:20 Anion Gap 16 mmol/L 11/16/20 11:20 BUN 38 mg/dL (7-17) H 11/16/20 11:20 Creatinine 4.4 mg/dL (0.6-1.2) H 11/16/20 11:20 Estimated GFR 12 ml/min 11/16/20 11:20 BUN/Creatinine Ratio 9 % 11/16/20 11:20 Glucose 77 mg/dL (65-100) 11/16/20 12:37 Calcium 8.9 mg/dL (8.4-10.2) 11/16/20 11:20 Ferritin 4300.0 ng/mL (10.0-200.0) H 11/16/20 12:37 Total Bilirubin 0.80 mg/dL (0.1-1.2) 11/16/20 11:20 AST 27 units/L (5-40) 11/16/20 11:20 ALT 11 units/L (7-56) 11/16/20 11:20 Alkaline Phosphatase 66 units/L (35-129) 11/16/20 11:20 Lactate Dehydrogenase 284 units/L (91-180) H 11/16/20 12:37 Troponin T 0.070 ng/mL (0.00-0.029) H 11/16/20 11:20 C-Reactive Protein 7.20 mg/dL (0.00-1.30) H 11/16/20 12:37 Total Protein 6.8 g/dL (6.3-8.2) 11/16/20 11:20 Albumin 3.5 g/dL (3.9-5) L 11/16/20 11:20 Albumin/Globulin Ratio 1.1 % 11/16/20 11:20 Triglycerides 132 mg/dL (2-149) 11/16/20 11:20 Cholesterol 150 mg/dL (50-199) 11/16/20 11:20 LDL Cholesterol Direct 87 mg/dL (50-130) 11/16/20 11:20 HDL Cholesterol 37 mg/dL (40-59) L 11/16/20 11:20 Cholesterol/HDL Ratio 4.05 % 11/16/20 11:20 Procalcitonin 0.32 ng/mL (<0.15) 11/16/20 12:37 Ji/IV: Voiding Method External Female Catheter Active Medications - Current Medications Current Medications: Generic Name Dose Route Start Last Admin Trade Name Freq PRN Reason Stop Dose Admin Acetaminophen 650 mg 11/16/20 13:23 Acetaminophen 325 Mg Tab PO Q4H PRN Pain MILD(1-3)/Fever >100.5/ROBERT Albuterol 2.5 mg 11/16/20 13:23 Albuterol 2.5 Mg/3 Ml Nebu IH Q4HRT PRN Shortness Of Breath Albuterol 2 puff 11/17/20 16:00 Albuterol 8.5 Gm Mdi Inhalation IH Q6HRT PRN Shortness Of Breath Ascorbic Acid 500 mg 11/16/20 22:00 11/17/20 09:55 Ascorbic Acid 500 Mg Tab PO 500 mg BID ALAN Administration Carvedilol 12.5 mg 11/16/20 22:00 11/17/20 09:57 Carvedilol 12.5 Mg Tab PO 12.5 mg BID ALAN Administration Cholecalciferol 1,000 unit 11/17/20 10:00 11/17/20 09:55 Cholecalciferol (Vit D3) 1000 Unit (25 Mcg) Tab PO 1,000 unit QDAY ALAN Administration Digoxin 0.125 mg 11/16/20 17:00 11/17/20 20:03 Digoxin 0.25 Mg Tab PO Not Given DAILY@1700 [facility] Heparin Sodium (Porcine) 5,000 unit 11/16/20 15:00 11/17/20 09:55 Heparin 5,000 Unit/1 Ml Vial SUB-Q 5,000 unit Q12HR ALAN Administration Hydromorphone HCl 0.5 mg 11/16/20 13:23 Hydromorphone 1 Mg/1 Ml Inj IV Q12H PRN Pain , Severe (7-10) Sodium Chloride 100 mls @ 999 mls/hr 11/16/20 12:42 Nacl 0.9% IV CAPRICE PRN Hypotension Ceftriaxone Sodium 2 gm in 100 mls @ 200 mls/hr 11/16/20 14:00 11/17/20 14:53 Rocephin/Ns 2 Gm/100 Ml IV 11/20/20 14:29 200 mls/hr Q24H ALAN Administration Protocol Azithromycin 500 mg in 250 mls @ 250 mls/hr 11/16/20 14:00 11/17/20 14:53 Zithromax/Ns IV 11/20/20 14:59 250 mls/hr Q24H ALAN Administration Protocol Lisinopril 20 mg 11/16/20 22:00 11/17/20 09:57 Lisinopril 20 Mg Tab PO 20 mg BID ALAN Administration Methylprednisolone Sodium Succinate 40 mg 11/16/20 14:00 11/17/20 14:53 Methylprednisolone Sod Succinate 40 Mg/1 Ml Inj IV 40 mg Q8H ALAN Administration Ondansetron HCl 4 mg 11/16/20 13:23 11/17/20 01:53 Ondansetron 4 Mg/2 Ml Inj IV 4 mg Q8H PRN Administration Nausea And Vomiting Oxycodone/Acetaminophen 1 tab 11/16/20 13:23 11/17/20 03:48 Oxycodone /Acetaminophen 5-325mg Tab PO 1 tab Q12H PRN Administration Pain, Moderate (4-6) Sodium Chloride 10 ml 11/16/20 22:00 11/17/20 10:16 Sodium Chloride 0.9% 10 Ml Flush Syringe IV 10 ml BID ALAN Administration Sodium Chloride 10 ml 11/16/20 13:23 Sodium Chloride 0.9% 10 Ml Flush Syringe IV PRN PRN LINE FLUSH Spironolactone 12.5 mg 11/17/20 10:00 11/17/20 09:58 Spironolactone 25 Mg Tab PO 12.5 mg QDAY ALAN Administration Zinc Sulfate 220 mg 11/16/20 22:00 11/17/20 09:55 Zinc Sulfate 220 Mg Cap PO 220 mg BID ALAN Administration
[2020-11-17 22:22] LABS: Lymphocytes # (Auto) 0.4 K/mm3 (1.2-5.4); Lymphocytes % (Auto) 15.6 % (13.4-35.0); Mean Corpuscular HGB Conc 31 % (30-34); Mean Corpuscular Volume 84 fl (79-97); Monocytes # (Auto) 0.2 K/mm3 (0.0-0.8); Monocytes % (Auto) 7.8 % (0.0-7.3); Platelet Count 151 K/mm3 (140-440); Red Blood Count 4.62 M/mm3 (3.65-5.03); Red Cell Distribution Width 14.7 % (13.2-15.2)
[2020-11-17 22:29] LABS: Albumin 3.2 g/dL (3.9-5); Calcium 8.2 mg/dL (8.4-10.2)
[2020-11-17 22:32] LABS: Hematocrit 38.7 % (30.3-42.9); Hemoglobin 11.8 gm/dl (10.1-14.3); Hepatitis C Virus Antibody Non-Reactive (NonReactive)
[2020-11-17 22:47] LABS: Hepatitis B Surface Antigen Nonreactive (Negative)
[2020-11-18] MEDS: oxyCODONE /ACETAMINOPHEN 5-325MG TAB PO PRN (01:20)
[2020-11-18] MEDS ORDERED: LOPERAMIDE 2 MG CAP PO PRN (04:31)
[2020-11-18] MEDS: methylPREDNISolone Sod Succinate 40 MG/1 ML INJ IV SCH ×3 (05:18→22:32)
[2020-11-18] MEDS: INSULIN LISPRO 100 UNIT/ML SUB-Q SCH ×4 (07:05→22:30)
--- NOTE | 2020-11-18 08:14 | Event Note ---
Date: 11/18/20 Consent was obtained from Ms Vallecillo 11/16 to continue dialysis. Elizabeth, the dialysis nurse was present for the conversation. Katja Moulton MD
--- NOTE | 2020-11-18 09:08 | Progress Note ---
Assessment and Plan Assessment - End-stage renal disease on hemodialysis - Hypertension - COVID infection - Acute resp failure Recommendations - Continue HD TTS, UF as tolerated - Vascular consult for access evaluation given high venous pressure - Monitor labs and volume status daily and assess need for additional dialysis session - Continue home antihypertensives - Hold antihypertensives on hemodialysis days for systolics less than 160 - No indication for Epogen with HD - ESRD diet with 1.4 g/kg per day protein - Renally dose medication for creatinine clearance less than 15 cc/min Subjective Date of service: 11/18/20 Principal diagnosis: Hypoxia Interval history: HD stopped after 2 hours due to high venous pressure and clotting. Objective - Exam Narrative Exam: Deferred to reduce transmission risk, primary team exam reviewed. - Vital Signs Vital signs: Vital Signs - 12hr 11/18/20 11/18/20 02:59 04:16 Temperature 97.9 F Pulse Rate 101 H Pulse Rate [ 99 H Right Brachial] Respiratory 18 16 Rate Blood Pressure 117/72 O2 Sat by Pulse 97 99 Oximetry - Lab 11/17/20 21:36 11/17/20 21:36 Most recent lab results Calcium 8.2 mg/dL (8.4-10.2) L 11/17/20 21:36 Medications & Allergies - Medications Allergies/Adverse Reactions: Allergies codeine Allergy (Verified 07/08/15 00:01) Swelling Home Medications: Home Medications Medication Instructions Recorded Confirmed Last Taken Type Digoxin [Lanoxin] 0.125 mg PO DAILY@1700 #30 tablet 07/16/15 11/18/20 Unknown Rx Spironolactone [Aldactone] 12.5 mg PO QDAY #30 tablet 07/16/15 11/18/20 Unknown Rx carvediloL [Coreg] 12.5 mg PO BID 60 Days tablet 07/16/15 11/18/20 Unknown Rx lisinopriL [Zestril TAB] 20 mg PO BID #60 tablet 07/16/15 11/18/20 Unknown Rx Acetaminophen [Tylenol] 650 mg PO Q8HR PRN #20 capsule 10/26/20 11/18/20 Unknown Rx Active Medications: Generic Name Dose Route Start Last Admin Trade Name Freq PRN Reason Stop Dose Admin Acetaminophen 650 mg 11/16/20 13:23 Acetaminophen 325 Mg Tab PO Q4H PRN Pain MILD(1-3)/Fever >100.5/ROBERT Albuterol 2.5 mg 11/16/20 13:23 Albuterol 2.5 Mg/3 Ml Nebu IH Q4HRT PRN Shortness Of Breath Albuterol 2 puff 11/17/20 16:00 Albuterol 8.5 Gm Mdi Inhalation IH Q6HRT PRN Shortness Of Breath Ascorbic Acid 500 mg 11/16/20 22:00 11/17/20 23:18 Ascorbic Acid 500 Mg Tab PO 500 mg BID ALAN Administration Carvedilol 12.5 mg 11/16/20 22:00 11/17/20 23:18 Carvedilol 12.5 Mg Tab PO 12.5 mg BID ALAN Administration Cholecalciferol 1,000 unit 11/17/20 10:00 11/17/20 09:55 Cholecalciferol (Vit D3) 1000 Unit (25 Mcg) Tab PO 1,000 unit QDAY ALAN Administration Digoxin 0.125 mg 11/16/20 17:00 11/17/20 20:03 Digoxin 0.25 Mg Tab PO Not Given DAILY@1700 ALAN Heparin Sodium (Porcine) 5,000 unit 11/16/20 15:00 11/17/20 23:17 Heparin 5,000 Unit/1 Ml Vial SUB-Q 5,000 unit Q12HR ALAN Administration Hydromorphone HCl 0.5 mg 11/16/20 13:23 Hydromorphone 1 Mg/1 Ml Inj IV Q12H PRN Pain , Severe (7-10) Sodium Chloride 100 mls @ 999 mls/hr 11/16/20 12:42 Nacl 0.9% IV CAPRICE PRN Hypotension Ceftriaxone Sodium 2 gm in 100 mls @ 200 mls/hr 11/16/20 14:00 11/17/20 14:53 Rocephin/Ns 2 Gm/100 Ml IV 11/20/20 14:29 200 mls/hr Q24H ALAN Administration Protocol Azithromycin 500 mg in 250 mls @ 250 mls/hr 11/16/20 14:00 11/17/20 14:53 Zithromax/Ns IV 11/20/20 14:59 250 mls/hr Q24H ALAN Administration Protocol Insulin Human Lispro 0 unit 11/18/20 07:30 11/18/20 07:05 Insulin Lispro 100 Unit/Ml SUB-Q 4 unit ACHS [facility] Administration Protocol Lisinopril 20 mg 11/16/20 22:00 11/17/20 23:18 Lisinopril 20 Mg Tab PO 20 mg BID ALAN Administration Loperamide HCl 2 mg 11/18/20 04:31 11/18/20 05:18 Loperamide 2 Mg Cap PO 2 mg Q2H PRN Administration Diarrhea Methylprednisolone Sodium Succinate 40 mg 11/16/20 14:00 11/18/20 05:18 Methylprednisolone Sod Succinate 40 Mg/1 Ml Inj IV 40 mg Q8H ALAN Administration Ondansetron HCl 4 mg 11/16/20 13:23 11/17/20 01:53 Ondansetron 4 Mg/2 Ml Inj IV 4 mg Q8H PRN Administration Nausea And Vomiting Oxycodone/Acetaminophen 1 tab 11/16/20 13:23 11/18/20 01:20 Oxycodone /Acetaminophen 5-325mg Tab PO 1 tab Q12H PRN Administration Pain, Moderate (4-6) Sodium Chloride 10 ml 11/16/20 22:00 11/17/20 23:19 Sodium Chloride 0.9% 10 Ml Flush Syringe IV 10 ml BID ALAN Administration Sodium Chloride 10 ml 11/16/20 13:23 Sodium Chloride 0.9% 10 Ml Flush Syringe IV PRN PRN LINE FLUSH Spironolactone 12.5 mg 11/17/20 10:00 11/17/20 09:58 Spironolactone 25 Mg Tab PO 12.5 mg QDAY ALAN Administration Zinc Sulfate 220 mg 11/16/20 22:00 11/17/20 23:18 Zinc Sulfate 220 Mg Cap PO 220 mg BID ALAN Administration
[2020-11-18] MEDS ORDERED: ALBUMIN HUMAN 25% (12.5 GM/50 ML) INJ IV SCH (10:00)
[2020-11-18] MEDS: HEPARIN 5,000 UNIT/1 ML VIAL SUB-Q SCH ×2 (10:00→22:30)
--- NOTE | 2020-11-18 15:28 | Consultation ---
History of Present Illness - Reason for Consult Consult date: 11/18/20 Elevated venous pressures, COVID-19 positive - History of Present Illness Patient with a history of end-stage renal disease on hemodialysis through a left upper arm AV graft. During dialysis today, the patient was noted to have elevated venous pressures and only 1.5 L of fluid was able to be removed. On examination, the patient has a strongly palpable thrill throughout her graft and stated that the wrong needles have been used during her dialysis session today. She said that they would be trying again tomorrow. Past History Past Medical History: CAD, COPD, ESRD, heart failure, hypertension Past Surgical History: hysterectomy, Other (Cardiac stent placement) Social history: single. denies: smoking, alcohol abuse, prescription drug abuse, IV drug use Family history: diabetes, hypertension Medications and Allergies Allergies Allergy/AdvReac Type Severity Reaction Status Date / Time codeine Allergy Swelling Verified 07/08/15 00:01 Home Medications Medication Instructions Recorded Confirmed Last Taken Type Digoxin [Lanoxin] 0.125 mg PO DAILY@1700 #30 tablet 07/16/15 11/18/20 Unknown Rx Spironolactone [Aldactone] 12.5 mg PO QDAY #30 tablet 07/16/15 11/18/20 Unknown Rx carvediloL [Coreg] 12.5 mg PO BID 60 Days tablet 07/16/15 11/18/20 Unknown Rx lisinopriL [Zestril TAB] 20 mg PO BID #60 tablet 07/16/15 11/18/20 Unknown Rx Acetaminophen [Tylenol] 650 mg PO Q8HR PRN #20 capsule 10/26/20 11/18/20 Unknown Rx Active Meds: Active Medications Acetaminophen (Acetaminophen 325 Mg Tab) 650 mg PO Q4H PRN PRN Reason: Pain MILD(1-3)/Fever >100.5/ROBERT Albuterol (Albuterol 2.5 Mg/3 Ml Nebu) 2.5 mg IH Q4HRT PRN PRN Reason: Shortness Of Breath Albuterol (Albuterol 8.5 Gm Mdi Inhalation) 2 puff IH Q6HRT PRN PRN Reason: Shortness Of Breath Ascorbic Acid (Ascorbic Acid 500 Mg Tab) 500 mg PO BID ALAN Last Admin: 11/17/20 23:18 Dose: 500 mg Documented by: Carvedilol (Carvedilol 12.5 Mg Tab) 12.5 mg PO BID [facility] Last Admin: 11/17/20 23:18 Dose: 12.5 mg Documented by: Cholecalciferol (Cholecalciferol (Vit D3) 1000 Unit (25 Mcg) Tab) 1,000 unit PO QDAY [facility] Last Admin: 11/17/20 09:55 Dose: 1,000 unit Documented by: Digoxin (Digoxin 0.125 Mg Tab) 0.125 mg PO DAILY@1700 ALAN Heparin Sodium (Porcine) (Heparin 5,000 Unit/1 Ml Vial) 5,000 unit SUB-Q Q12HR [facility] Last Admin: 11/17/20 23:17 Dose: 5,000 unit Documented by: Hydromorphone HCl (Hydromorphone 1 Mg/1 Ml Inj) 0.5 mg IV Q12H PRN PRN Reason: Pain , Severe (7-10) Sodium Chloride (Nacl 0.9%) 100 mls @ 999 mls/hr IV CAPRICE PRN PRN Reason: Hypotension Ceftriaxone Sodium (Rocephin/Ns 2 Gm/100 Ml) 2 gm in 100 mls @ 200 mls/hr IV Q24H [facility]; Protocol Stop: 11/20/20 14:29 Last Admin: 11/17/20 14:53 Dose: 200 mls/hr Documented by: Azithromycin (Zithromax/Ns) 500 mg in 250 mls @ 250 mls/hr IV Q24H [facility]; Protocol Stop: 11/20/20 14:59 Last Admin: 11/17/20 14:53 Dose: 250 mls/hr Documented by: Insulin Human Lispro (Insulin Lispro 100 Unit/Ml) 0 unit SUB-Q ACHS [facility]; Protocol Last Admin: 11/18/20 07:05 Dose: 4 unit Documented by: Lisinopril (Lisinopril 20 Mg Tab) 20 mg PO BID [facility] Last Admin: 11/17/20 23:18 Dose: 20 mg Documented by: Loperamide HCl (Loperamide 2 Mg Cap) 2 mg PO Q2H PRN PRN Reason: Diarrhea Last Admin: 11/18/20 05:18 Dose: 2 mg Documented by: Methylprednisolone Sodium Succinate (Methylprednisolone Sod Succinate 40 Mg/1 Ml Inj) 40 mg IV Q8H [facility] Last Admin: 11/18/20 05:18 Dose: 40 mg Documented by: Ondansetron HCl (Ondansetron 4 Mg/2 Ml Inj) 4 mg IV Q8H PRN PRN Reason: Nausea And Vomiting Last Admin: 11/17/20 01:53 Dose: 4 mg Documented by: Oxycodone/Acetaminophen (Oxycodone /Acetaminophen 5-325mg Tab) 1 tab PO Q12H PRN PRN Reason: Pain, Moderate (4-6) Last Admin: 11/18/20 01:20 Dose: 1 tab Documented by: Sodium Chloride (Sodium Chloride 0.9% 10 Ml Flush Syringe) 10 ml IV BID [facility] Last Admin: 11/17/20 23:19 Dose: 10 ml Documented by: Sodium Chloride (Sodium Chloride 0.9% 10 Ml Flush Syringe) 10 ml IV PRN PRN PRN Reason: LINE FLUSH Spironolactone (Spironolactone 25 Mg Tab) 12.5 mg PO QDAY [facility] Last Admin: 11/17/20 09:58 Dose: 12.5 mg Documented by: Zinc Sulfate (Zinc Sulfate 220 Mg Cap) 220 mg PO BID [facility] Last Admin: 11/17/20 23:18 Dose: 220 mg Documented by: Review of Systems All systems: negative Exam - Constitutional Vitals: Temp Pulse Resp BP Pulse Ox 98.9 F 98 H 20 123/62 97 11/18/20 10:45 11/18/20 10:45 11/18/20 10:45 11/18/20 10:45 11/18/20 10:45 General appearance: Present: no acute distress - EENT Eyes: Present: EOM intact ENT: hearing intact - Neck Neck: Present: normal ROM - Respiratory Respiratory effort: normal - Extremities Extremities: abnormal (Patient with bilateral lower extremity edema that has significantly decreased with decompression of her lower legs. Patient has hemosiderin staining.) - Abdominal General gastrointestinal: Present: deferred - Rectal Rectal Exam: deferred - Psychiatric Psychiatric: cooperative Results - Labs CBC & Chem 7: 11/17/20 21:36 11/17/20 21:36 Labs: Abnormal lab results 11/17/20 11/17/20 11/17/20 Range/Units 21:36 21:36 21:45 WBC 2.6 L (4.5-11.0) K/mm3 MCH 26 L (28-32) pg Cuming % (Auto) 7.8 H (0.0-7.3) % Lymph # (Auto) 0.4 L (1.2-5.4) K/mm3 Seg Neutrophils % 76.6 H (40.0-70.0) % BUN 33 H (7-17) mg/dL Creatinine 4.1 H (0.6-1.2) mg/dL Glucose 237 H (65-100) mg/dL POC Glucose 236 H (70-105) mg/dL Calcium 8.2 L (8.4-10.2) mg/dL Albumin 3.2 L (3.9-5) g/dL Coronavirus (PCR) (Negative) 11/17/20 11/18/20 11/18/20 Range/Units Unknown 05:15 11:35 WBC (4.5-11.0) K/mm3 MCH (28-32) pg Cuming % (Auto) (0.0-7.3) % Lymph # (Auto) (1.2-5.4) K/mm3 Seg Neutrophils % (40.0-70.0) % BUN (7-17) mg/dL Creatinine (0.6-1.2) mg/dL Glucose (65-100) mg/dL POC Glucose 252 H 157 H (70-105) mg/dL Calcium (8.4-10.2) mg/dL Albumin (3.9-5) g/dL Coronavirus (PCR) Positive A (Negative) Assessment and Plan Patient currently with functioning dialysis access. Will allow reattempt tomorrow. She may require intervention. Will follow to determine the timing of this.
[2020-11-18] MEDS: cefTRIAXone/NS 2 GM/100 ML 2 GM/100 ML BAG IV SCH (16:41)
[2020-11-18] MEDS: AZITHROMYCIN/NS 500 MG/250 ML 500 MG/250 ML BAG IV SCH (16:41)
[2020-11-18] MEDS: carvediloL 12.5 MG TAB PO SCH ×2 (16:42→22:29)
[2020-11-18] MEDS: ASCORBIC ACID 500 MG TAB PO SCH ×2 (16:42→22:29)
[2020-11-18] MEDS: LISINOPRIL 20 MG TAB PO SCH ×2 (16:42→22:29)
[2020-11-18] MEDS: CHOLECALCIFEROL (VIT D3) 1000 UNIT (25 mcg) TAB PO SCH (16:42)
[2020-11-18] MEDS: ZINC SULFATE 220 MG CAP PO SCH ×2 (16:42→22:29)
[2020-11-18] MEDS: SPIRONOLACTONE 25 MG TAB PO SCH (16:46)
[2020-11-18] MEDS: DIGOXIN 0.125 MG TAB PO SCH (17:00)
--- NOTE | 2020-11-19 | Progress Note ---
Assessment and Plan - Patient Problems (1) Acute hypoxemic respiratory failure Current Visit: Yes Status: Acute Plan to address problem: On 2 L nasal cannula oxygen Continue IV Decadron/steroids (2) Suspected 2019 novel coronavirus infection Current Visit: Yes Status: Acute Plan to address problem: Coronavirus positive On IV Decadron/steroids (3) Pneumonia Current Visit: Yes Status: Acute Plan to address problem: Pneumonia protocol: Chest x-ray, CBC, CMP, IV antibiotic therapy, supplemental oxygen, pulse oximetry, nebulizer therapy, blood culture. (4) ESRD on hemodialysis Current Visit: Yes Status: Acute Plan to address problem: Nephrology team consulted in ED, dialysis as per renal team, avoid nephrotoxic agents. (5) DVT prophylaxis Current Visit: Yes Status: Acute Plan to address problem: SCD to bilateral lower extremities while in bed, prophylactic anticoagulation (6) Advance care planning Current Visit: Yes Status: Acute Plan to address problem: Disease education conducted, care plan discussed, diagnosis discussed, prognosis discussed, patient is full code, patient knowledges understanding agree with care plan, +30 minutes. Subjective Date of service: 11/18/20 Principal diagnosis: Hypoxia Interval history: 70 YO Female with ESRD on HD(T,R,Sa), COPD, CHF, HTN, CAD S/P Stent Placement presents to ED for evaluation. Patient reports "I cannot breathe". Patient states that she has experienced shortness of breath over the past 1 week with persistently worsening symptoms over the past 3 days. Patient was diagnosed with coronavirus infection 5 days ago. Patient presented to her dialysis clinic for her routine scheduled dialysis session and upon arrival the patient was found to be in distress and was found to have a pulse oximetry of 89%. EMS was notified and upon arrival the patient was found to be in distress and subsequently transported to [facility] for further care and evaluation of the aforementioned symptoms. The patient was seen and evaluated in the emergency department. All lab and imaging studies reviewed. Patient found to have a pulse oximetry of 88% on room air with exertion which is consistent with acute hypoxemic respiratory failure. Chest x-ray revealed bilateral pneumonia. Patient admitted to medical floor and initiated on coronavirus protocol. Patient denies fever, chills, chest pain, palpitation, productive cough, skin ra sh, recent ill contacts. Patient states that she is fully vaccinated against COVID-19. Prior admission on 07/08/2015 reviewed. All medication listed at time of admission has been reconciled. Advanced care planning conducted in ED. 11/18/2020 On 2 L nasal cannula oxygen We will try to discharge tomorrow with home 2 L nasal cannula oxygen We will discuss with case management tomorrow Objective - Constitutional Vitals: Vital Signs - 12hr 11/18/20 11/18/20 16:30 20:59 Temperature 97.7 F 98.0 F Pulse Rate 103 H 97 H Respiratory 20 16 Rate Blood Pressure 149/88 Blood Pressure 103/59 [Right] O2 Sat by Pulse 100 97 Oximetry General appearance: Present: no acute distress, well-nourished - EENT Eyes: PERRL, EOM intact ENT: hearing intact, clear oral mucosa Ears: bilateral: normal - Neck Neck: supple, normal ROM - Respiratory Respiratory effort: normal Respiratory: bilateral: CTA - Breasts Breasts: normal - Cardiovascular Rhythm: regular Heart Sounds: Present: S1 & S2. Absent: gallop, rub Extremities: pulses intact, No edema, normal color, Full ROM - Gastrointestinal General gastrointestinal: Present: soft, non-tender, non-distended, normal bowel sounds - Genitourinary Female genitourinary: normal - Integumentary Integumentary: clear, warm, dry - Musculoskeletal Musculoskeletal: 1, strength equal bilaterally - Neurologic Neurologic: moves all extremities - Psychiatric Psychiatric: memory intact, appropriate mood/affect, intact judgment & insight - Labs CBC & Chem 7: 11/17/20 21:36 11/17/20 21:36 Labs: Abnormal lab results 11/17/20 11/18/20 11/18/20 Range/Units Unknown 05:15 11:35 POC Glucose 252 H 157 H (70-105) mg/dL Coronavirus (PCR) Positive A (Negative) 11/18/20 11/18/20 Range/Units 16:34 21:03 POC Glucose 260 H 195 H (70-105) mg/dL Coronavirus (PCR) (Negative) HEART Score - HEART Score Troponin: Troponin T 0.070 ng/mL (0.00-0.029) H 11/16/20 11:20
[2020-11-19] MEDS: methylPREDNISolone Sod Succinate 40 MG/1 ML INJ IV SCH ×3 (05:27→23:24)
[2020-11-19] MEDS: INSULIN LISPRO 100 UNIT/ML SUB-Q SCH ×4 (07:30→23:27)
--- NOTE | 2020-11-19 08:44 | Consultation ---
History of Present Illness Consult date: 11/19/20 Requesting physician: NICK ROSALES Consult reason: chest pain History of present illness: Pt is a 70-year-old female, previously unknown to our practice, who presented with complaints of SOB (worse than her baseline) and a "rattling cough." Pt was found to have COVID-19 PNA and is currently being treated as such. Cardiology has been consulted for evaluation of chest pain. Pt reports midsternal chest tightness that has been constant since admission. Pain is worse upon deep inspiration. She states "my chest feels tight when I try to breathe." Pt reports a hx of COPD (on 2L home O2) and states "I have this chest pain all of the time." She does note exacerbation via coughing as well. No additional cardiac complaints. Minimal troponin elevation noted (0.070) on 11/16. No follow-up cardiac enzymes have since been obtained. ECG reveals no acute ischemic changes. LHC in 2014 revealed no significant coronary disease. Past History Past Medical History: atrial fib, COPD, diabetes, dialysis, ESRD, heart failure, hypertension, other (LEO) Past Surgical History: hysterectomy. denies: CABG, PTCA Social history: denies: smoking, alcohol abuse Family history: diabetes, hypertension Medications and Allergies Allergies Allergy/AdvReac Type Severity Reaction Status Date / Time codeine Allergy Swelling Verified 07/08/15 00:01 Home Medications Medication Instructions Recorded Confirmed Last Taken Type Digoxin [Lanoxin] 0.125 mg PO DAILY@1700 #30 tablet 07/16/15 11/18/20 Unknown Rx Spironolactone [Aldactone] 12.5 mg PO QDAY #30 tablet 07/16/15 11/18/20 Unknown Rx carvediloL [Coreg] 12.5 mg PO BID 60 Days tablet 07/16/15 11/18/20 Unknown Rx lisinopriL [Zestril TAB] 20 mg PO BID #60 tablet 07/16/15 11/18/20 Unknown Rx Acetaminophen [Tylenol] 650 mg PO Q8HR PRN #20 capsule 10/26/20 11/18/20 Unknown Rx Active Meds: Active Medications Acetaminophen (Acetaminophen 325 Mg Tab) 650 mg PO Q4H PRN PRN Reason: Pain MILD(1-3)/Fever >100.5/ROBERT Albuterol (Albuterol 2.5 Mg/3 Ml Nebu) 2.5 mg IH Q4HRT PRN PRN Reason: Shortness Of Breath Albuterol (Albuterol 8.5 Gm Mdi Inhalation) 2 puff IH Q6HRT PRN PRN Reason: Shortness Of Breath Ascorbic Acid (Ascorbic Acid 500 Mg Tab) 500 mg PO BID [facility] Last Admin: 11/18/20 22:29 Dose: 500 mg Documented by: Carvedilol (Carvedilol 12.5 Mg Tab) 12.5 mg PO BID [facility] Last Admin: 11/18/20 22:29 Dose: 12.5 mg Documented by: Cholecalciferol (Cholecalciferol (Vit D3) 1000 Unit (25 Mcg) Tab) 1,000 unit PO QDAY [facility] Last Admin: 11/18/20 16:42 Dose: 1,000 unit Documented by: Digoxin (Digoxin 0.125 Mg Tab) 0.125 mg PO DAILY@1700 [facility] Last Admin: 11/18/20 17:00 Dose: 0.125 mg Documented by: Heparin Sodium (Porcine) (Heparin 5,000 Unit/1 Ml Vial) 5,000 unit SUB-Q Q12HR [facility] Last Admin: 11/18/20 22:30 Dose: 5,000 unit Documented by: Hydromorphone HCl (Hydromorphone 1 Mg/1 Ml Inj) 0.5 mg IV Q12H PRN PRN Reason: Pain , Severe (7-10) Sodium Chloride (Nacl 0.9%) 100 mls @ 999 mls/hr IV CAPRICE PRN PRN Reason: Hypotension Ceftriaxone Sodium (Rocephin/Ns 2 Gm/100 Ml) 2 gm in 100 mls @ 200 mls/hr IV Q24H [facility]; Protocol Stop: 11/20/20 14:29 Last Admin: 11/18/20 16:41 Dose: 200 mls/hr Documented by: Azithromycin (Zithromax/Ns) 500 mg in 250 mls @ 250 mls/hr IV Q24H [facility]; Protocol Stop: 11/20/20 14:59 Last Admin: 11/18/20 16:41 Dose: 250 mls/hr Documented by: Insulin Human Lispro (Insulin Lispro 100 Unit/Ml) 0 unit SUB-Q ACHS [facility]; Protocol Last Admin: 11/19/20 07:30 Dose: 3 unit Documented by: Lisinopril (Lisinopril 20 Mg Tab) 20 mg PO BID [facility] Last Admin: 11/18/20 22:29 Dose: 20 mg Documented by: Loperamide HCl (Loperamide 2 Mg Cap) 2 mg PO Q2H PRN PRN Reason: Diarrhea Last Admin: 11/18/20 05:18 Dose: 2 mg Documented by: Methylprednisolone Sodium Succinate (Methylprednisolone Sod Succinate 40 Mg/1 Ml Inj) 40 mg IV Q8H [facility] Last Admin: 11/19/20 05:27 Dose: 40 mg Documented by: Ondansetron HCl (Ondansetron 4 Mg/2 Ml Inj) 4 mg IV Q8H PRN PRN Reason: Nausea And Vomiting Last Admin: 11/17/20 01:53 Dose: 4 mg Documented by: Oxycodone/Acetaminophen (Oxycodone /Acetaminophen 5-325mg Tab) 1 tab PO Q12H PRN PRN Reason: Pain, Moderate (4-6) Last Admin: 11/18/20 01:20 Dose: 1 tab Documented by: Sodium Chloride (Sodium Chloride 0.9% 10 Ml Flush Syringe) 10 ml IV BID [facility] Last Admin: 11/18/20 22:30 Dose: 10 ml Documented by: Sodium Chloride (Sodium Chloride 0.9% 10 Ml Flush Syringe) 10 ml IV PRN PRN PRN Reason: LINE FLUSH Spironolactone (Spironolactone 25 Mg Tab) 12.5 mg PO QDAY [facility] Last Admin: 11/18/20 16:46 Dose: 12.5 mg Documented by: Zinc Sulfate (Zinc Sulfate 220 Mg Cap) 220 mg PO BID [facility] Last Admin: 11/18/20 22:29 Dose: 220 mg Documented by: Physical Examination Last Vital Signs Temp 98.8 F 11/19/20 11:28 Pulse 104 H 11/19/20 11:28 Resp 20 11/19/20 11:28 BP 101/57 11/19/20 11:28 Pulse Ox 100 11/19/20 11:28 General appearance: no acute distress HEENT: Positive: EOMI, Normocephaly Neck: Positive: neck supple, trachea midline Cardiac: Positive: irregularly irregular, S1/S2 Lungs: Positive: Decreased Breath Sounds Neuro: Positive: Grossly Intact Abdomen: Positive: Soft Skin: Negative: Rash Musculoskeletal: No Pain Extremities: Present: lower extr. pulses. Absent: edema Results 11/17/20 21:36 11/17/20 21:36 Cardiac Enzymes 11/16/20 11/16/20 11/16/20 Range/Units 11:20 11:20 12:37 WBC 4.7 (4.5-11.0) K/mm3 RBC 4.70 (3.65-5.03) M/mm3 Hgb 12.1 (10.1-14.3) gm/dl Hct 37.9 (30.3-42.9) % MCV 81 (79-97) fl MCH 26 L (28-32) pg MCHC 32 (30-34) % RDW 14.4 (13.2-15.2) % Plt Count 173 (140-440) K/mm3 Lymph % (Auto) (13.4-35.0) % Granite % (Auto) (0.0-7.3) % Eos % (Auto) (0.0-4.3) % Baso % (Auto) (0.0-1.8) % Lymph # (Auto) (1.2-5.4) K/mm3 Granite # (Auto) (0.0-0.8) K/mm3 Eos # (Auto) (0.0-0.4) K/mm3 Baso # (Auto) (0.0-0.1) K/mm3 Add Manual Diff Complete Total Counted 100 Seg Neutrophils % (40.0-70.0) % Seg Neuts % (Manual) 81.0 H (40.0-70.0) % Band Neutrophils % 4.0 % Lymphocytes % (Manual) 8.0 L (13.4-35.0) % Monocytes % (Manual) 6.0 (0.0-7.3) % Myelocytes % 1.0 % Nucleated RBC % Not Reportable Seg Neutrophils # (1.8-7.7) K/mm3 Seg Neutrophils # Man 3.8 (1.8-7.7) K/mm3 Band Neutrophils # 0.2 K/mm3 Lymphocytes # (Manual) 0.4 L (1.2-5.4) K/mm3 Abs React Lymphs (Man) 0.0 K/mm3 Monocytes # (Manual) 0.3 (0.0-0.8) K/mm3 Eosinophils # (Manual) 0.0 (0.0-0.4) K/mm3 Basophils # (Manual) 0.0 (0.0-0.1) K/mm3 Metamyelocytes # 0.0 K/mm3 Myelocytes # 0.0 K/mm3 Promyelocytes # 0.0 K/mm3 Blast Cells # 0.0 K/mm3 WBC Morphology Not Reportable Hypersegmented Neuts Not Reportable Hyposegmented Neuts Not Reportable Hypogranular Neuts Not Reportable Smudge Cells Not Reportable Toxic Granulation Not Reportable Toxic Vacuolation Not Reportable Dohle Bodies Not Reportable Pelger-Huet Anomaly Not Reportable Gaby Rods Not Reportable Platelet Estimate Not Reportable Clumped Platelets Not Reportable Plt Clumps, EDTA Not Reportable Large Platelets Not Reportable Giant Platelets Not Reportable Platelet Satelliting Not Reportable Plt Morphology Comment Not Reportable RBC Morphology Not Reportable Dimorphic RBCs Not Reportable Polychromasia Not Reportable Hypochromasia 1+ Poikilocytosis 1+ Anisocytosis Not Reportable Microcytosis Not Reportable Macrocytosis Not Reportable Spherocytes Not Reportable Pappenheimer Bodies Not Reportable Sickle Cells Not Reportable Target Cells Not Reportable Tear Drop Cells Not Reportable Ovalocytes 1+ Helmet Cells Not Reportable [place] Bodies Not Reportable Oto Rings Not Reportable Claudette Cells Not Reportable Bite Cells Not Reportable Crenated Cell Not Reportable Elliptocytes Not Reportable Acanthocytes (Spur) Not Reportable Rouleaux Not Reportable Hemoglobin C Crystals Not Reportable Schistocytes Rare Malaria parasites Not Reportable Hoang Bodies Not Reportable Hem Pathologist Commnt No D-Dimer (0-234) ng/mlDDU Sodium 134 L (137-145) mmol/L Potassium 3.9 (3.6-5.0) mmol/L Chloride 91.6 L (98-107) mmol/L Carbon Dioxide 30 (22-30) mmol/L Anion Gap 16 mmol/L BUN 38 H (7-17) mg/dL Creatinine 4.4 H (0.6-1.2) mg/dL Estimated GFR 12 ml/min BUN/Creatinine Ratio 9 % Glucose 85 (65-100) mg/dL POC Glucose (70-105) mg/dL Calcium 8.9 (8.4-10.2) mg/dL Ferritin (10.0-200.0) ng/mL Total Bilirubin 0.80 (0.1-1.2) mg/dL ALT 11 (7-56) units/L Alkaline Phosphatase 66 (35-129) units/L Troponin T 0.070 H (0.00-0.029) ng/mL C-Reactive Protein (0.00-1.30) mg/dL Total Protein 6.8 (6.3-8.2) g/dL Albumin 3.5 L (3.9-5) g/dL Albumin/Globulin Ratio 1.1 % Triglycerides 132 (2-149) mg/dL Cholesterol 150 (50-199) mg/dL LDL Cholesterol Direct 87 (50-130) mg/dL HDL Cholesterol 37 L (40-59) mg/dL Cholesterol/HDL Ratio 4.05 % Procalcitonin 0.32 (<0.15) ng/mL Coronavirus (PCR) (Negative) Hepatitis A IgM Ab (NonReactive) Hep Bs Antigen (Negative) Hep B Core IgM Ab (NonReactive) Hepatitis C Antibody (NonReactive) 11/16/20 11/16/20 11/16/20 Range/Units 12:37 12:37 12:37 WBC (4.5-11.0) K/mm3 RBC (3.65-5.03) M/mm3 Hgb (10.1-14.3) gm/dl Hct (30.3-42.9) % MCV (79-97) fl MCH (28-32) pg MCHC (30-34) % RDW (13.2-15.2) % Plt Count (140-440) K/mm3 Lymph % (Auto) (13.4-35.0) % Granite % (Auto) (0.0-7.3) % Eos % (Auto) (0.0-4.3) % Baso % (Auto) (0.0-1.8) % Lymph # (Auto) (1.2-5.4) K/mm3 Granite # (Auto) (0.0-0.8) K/mm3 Eos # (Auto) (0.0-0.4) K/mm3 Baso # (Auto) (0.0-0.1) K/mm3 Add Manual Diff Total Counted Seg Neutrophils % (40.0-70.0) % Seg Neuts % (Manual) (40.0-70.0) % Band Neutrophils % % Lymphocytes % (Manual) (13.4-35.0) % Monocytes % (Manual) (0.0-7.3) % Myelocytes % % Nucleated RBC % Seg Neutrophils # (1.8-7.7) K/mm3 Seg Neutrophils # Man (1.8-7.7) K/mm3 Band Neutrophils # K/mm3 Lymphocytes # (Manual) (1.2-5.4) K/mm3 Abs React Lymphs (Man) K/mm3 Monocytes # (Manual) (0.0-0.8) K/mm3 Eosinophils # (Manual) (0.0-0.4) K/mm3 Basophils # (Manual) (0.0-0.1) K/mm3 Metamyelocytes # K/mm3 Myelocytes # K/mm3 Promyelocytes # K/mm3 Blast Cells # K/mm3 WBC Morphology Hypersegmented Neuts Hyposegmented Neuts Hypogranular Neuts Smudge Cells Toxic Granulation Toxic Vacuolation Dohle Bodies Pelger-Huet Anomaly Gaby Rods Platelet Estimate Clumped Platelets Plt Clumps, EDTA Large Platelets Giant Platelets Platelet Satelliting Plt Morphology Comment RBC Morphology Dimorphic RBCs Polychromasia Hypochromasia Poikilocytosis Anisocytosis Microcytosis Macrocytosis Spherocytes Pappenheimer Bodies Sickle Cells Target Cells Tear Drop Cells Ovalocytes Helmet Cells [place] Bodies Oto Rings [place] Cells Bite Cells Crenated Cell Elliptocytes Acanthocytes (Spur) Rouleaux Hemoglobin C Crystals Schistocytes Malaria parasites Hoang Bodies Hem Pathologist Commnt D-Dimer 303.87 H (0-234) ng/mlDDU Sodium (137-145) mmol/L Potassium (3.6-5.0) mmol/L Chloride (98-107) mmol/L Carbon Dioxide (22-30) mmol/L Anion Gap mmol/L BUN (7-17) mg/dL Creatinine (0.6-1.2) mg/dL Estimated GFR ml/min BUN/Creatinine Ratio % Glucose 77 (65-100) mg/dL POC Glucose (70-105) mg/dL Calcium (8.4-10.2) mg/dL Ferritin 4300.0 H (10.0-200.0) ng/mL Total Bilirubin (0.1-1.2) mg/dL ALT (7-56) units/L Alkaline Phosphatase (35-129) units/L Troponin T (0.00-0.029) ng/mL C-Reactive Protein 7.20 H (0.00-1.30) mg/dL Total Protein (6.3-8.2) g/dL Albumin (3.9-5) g/dL Albumin/Globulin Ratio % Triglycerides (2-149) mg/dL Cholesterol (50-199) mg/dL LDL Cholesterol Direct (50-130) mg/dL HDL Cholesterol (40-59) mg/dL Cholesterol/HDL Ratio % Procalcitonin (<0.15) ng/mL Coronavirus (PCR) (Negative) Hepatitis A IgM Ab (NonReactive) Hep Bs Antigen (Negative) Hep B Core IgM Ab (NonReactive) Hepatitis C Antibody (NonReactive) 11/17/20 11/17/20 11/17/20 Range/Units 21:36 21:36 21:36 WBC 2.6 L (4.5-11.0) K/mm3 RBC 4.62 (3.65-5.03) M/mm3 Hgb 11.8 (10.1-14.3) gm/dl Hct 38.7 (30.3-42.9) % MCV 84 (79-97) fl MCH 26 L (28-32) pg MCHC 31 (30-34) % RDW 14.7 (13.2-15.2) % Plt Count 151 (140-440) K/mm3 Lymph % (Auto) 15.6 (13.4-35.0) % Granite % (Auto) 7.8 H (0.0-7.3) % Eos % (Auto) 0.0 (0.0-4.3) % Baso % (Auto) 0.0 (0.0-1.8) % Lymph # (Auto) 0.4 L (1.2-5.4) K/mm3 Granite # (Auto) 0.2 (0.0-0.8) K/mm3 Eos # (Auto) 0.0 (0.0-0.4) K/mm3 Baso # (Auto) 0.0 (0.0-0.1) K/mm3 Add Manual Diff Total Counted Seg Neutrophils % 76.6 H (40.0-70.0) % Seg Neuts % (Manual) (40.0-70.0) % Band Neutrophils % % Lymphocytes % (Manual) (13.4-35.0) % Monocytes % (Manual) (0.0-7.3) % Myelocytes % % Nucleated RBC % Seg Neutrophils # 2.0 (1.8-7.7) K/mm3 Seg Neutrophils # Man (1.8-7.7) K/mm3 Band Neutrophils # K/mm3 Lymphocytes # (Manual) (1.2-5.4) K/mm3 Abs React Lymphs (Man) K/mm3 Monocytes # (Manual) (0.0-0.8) K/mm3 Eosinophils # (Manual) (0.0-0.4) K/mm3 Basophils # (Manual) (0.0-0.1) K/mm3 Metamyelocytes # K/mm3 Myelocytes # K/mm3 Promyelocytes # K/mm3 Blast Cells # K/mm3 WBC Morphology Hypersegmented Neuts Hyposegmented Neuts Hypogranular Neuts Smudge Cells Toxic Granulation Toxic Vacuolation Dohle Bodies Pelger-Huet Anomaly Gaby Rods Platelet Estimate Clumped Platelets Plt Clumps, EDTA Large Platelets Giant Platelets Platelet Satelliting Plt Morphology Comment RBC Morphology Dimorphic RBCs Polychromasia Hypochromasia Poikilocytosis Anisocytosis Microcytosis Macrocytosis Spherocytes Pappenheimer Bodies Sickle Cells Target Cells Tear Drop Cells Ovalocytes Helmet Cells [place] Bodies Oto Rings Claudette Cells Bite Cells Crenated Cell Elliptocytes Acanthocytes (Spur) Rouleaux Hemoglobin C Crystals Schistocytes Malaria parasites Hoang Bodies Hem Pathologist Commnt D-Dimer (0-234) ng/mlDDU Sodium 140 (137-145) mmol/L Potassium 3.6 (3.6-5.0) mmol/L Chloride 99.3 (98-107) mmol/L Carbon Dioxide 25 (22-30) mmol/L Anion Gap 19 mmol/L BUN 33 H (7-17) mg/dL Creatinine 4.1 H (0.6-1.2) mg/dL Estimated GFR 13 ml/min BUN/Creatinine Ratio 8 % Glucose 237 H (65-100) mg/dL POC Glucose (70-105) mg/dL Calcium 8.2 L (8.4-10.2) mg/dL Ferritin (10.0-200.0) ng/mL Total Bilirubin 0.50 (0.1-1.2) mg/dL ALT 10 (7-56) units/L Alkaline Phosphatase 70 (35-129) units/L Troponin T (0.00-0.029) ng/mL C-Reactive Protein (0.00-1.30) mg/dL Total Protein 6.8 (6.3-8.2) g/dL Albumin 3.2 L (3.9-5) g/dL Albumin/Globulin Ratio 0.9 % Triglycerides (2-149) mg/dL Cholesterol (50-199) mg/dL LDL Cholesterol Direct (50-130) mg/dL HDL Cholesterol (40-59) mg/dL Cholesterol/HDL Ratio % Procalcitonin (<0.15) ng/mL Coronavirus (PCR) (Negative) Hepatitis A IgM Ab Non-reactive (NonReactive) Hep Bs Antigen Nonreactive (Negative) Hep B Core IgM Ab Non-reactive (NonReactive) Hepatitis C Antibody Non-reactive (NonReactive) 11/17/20 11/17/20 11/18/20 Range/Units 21:45 Unknown 05:15 WBC (4.5-11.0) K/mm3 RBC (3.65-5.03) M/mm3 Hgb (10.1-14.3) gm/dl Hct (30.3-42.9) % MCV (79-97) fl MCH (28-32) pg MCHC (30-34) % RDW (13.2-15.2) % Plt Count (140-440) K/mm3 Lymph % (Auto) (13.4-35.0) % Granite % (Auto) (0.0-7.3) % Eos % (Auto) (0.0-4.3) % Baso % (Auto) (0.0-1.8) % Lymph # (Auto) (1.2-5.4) K/mm3 Granite # (Auto) (0.0-0.8) K/mm3 Eos # (Auto) (0.0-0.4) K/mm3 Baso # (Auto) (0.0-0.1) K/mm3 Add Manual Diff Total Counted Seg Neutrophils % (40.0-70.0) % Seg Neuts % (Manual) (40.0-70.0) % Band Neutrophils % % Lymphocytes % (Manual) (13.4-35.0) % Monocytes % (Manual) (0.0-7.3) % Myelocytes % % Nucleated RBC % Seg Neutrophils # (1.8-7.7) K/mm3 Seg Neutrophils # Man (1.8-7.7) K/mm3 Band Neutrophils # K/mm3 Lymphocytes # (Manual) (1.2-5.4) K/mm3 Abs React Lymphs (Man) K/mm3 Monocytes # (Manual) (0.0-0.8) K/mm3 Eosinophils # (Manual) (0.0-0.4) K/mm3 Basophils # (Manual) (0.0-0.1) K/mm3 Metamyelocytes # K/mm3 Myelocytes # K/mm3 Promyelocytes # K/mm3 Blast Cells # K/mm3 WBC Morphology Hypersegmented Neuts Hyposegmented Neuts Hypogranular Neuts Smudge Cells Toxic Granulation Toxic Vacuolation Dohle Bodies Pelger-Huet Anomaly Gaby Rods Platelet Estimate Clumped Platelets Plt Clumps, EDTA Large Platelets Giant Platelets Platelet Satelliting Plt Morphology Comment RBC Morphology Dimorphic RBCs Polychromasia Hypochromasia Poikilocytosis Anisocytosis Microcytosis Macrocytosis Spherocytes Pappenheimer Bodies Sickle Cells Target Cells Tear Drop Cells Ovalocytes Helmet Cells [place] Bodies Oto Rings Claudette Cells Bite Cells Crenated Cell Elliptocytes Acanthocytes (Spur) Rouleaux Hemoglobin C Crystals Schistocytes Malaria parasites Hoang Bodies Hem Pathologist Commnt D-Dimer (0-234) ng/mlDDU Sodium (137-145) mmol/L Potassium (3.6-5.0) mmol/L Chloride (98-107) mmol/L Carbon Dioxide (22-30) mmol/L Anion Gap mmol/L BUN (7-17) mg/dL Creatinine (0.6-1.2) mg/dL Estimated GFR ml/min BUN/Creatinine Ratio % Glucose (65-100) mg/dL POC Glucose 236 H 252 H (70-105) mg/dL Calcium (8.4-10.2) mg/dL Ferritin (10.0-200.0) ng/mL Total Bilirubin (0.1-1.2) mg/dL ALT (7-56) units/L Alkaline Phosphatase (35-129) units/L Troponin T (0.00-0.029) ng/mL C-Reactive Protein (0.00-1.30) mg/dL Total Protein (6.3-8.2) g/dL Albumin (3.9-5) g/dL Albumin/Globulin Ratio % Triglycerides (2-149) mg/dL Cholesterol (50-199) mg/dL LDL Cholesterol Direct (50-130) mg/dL HDL Cholesterol (40-59) mg/dL Cholesterol/HDL Ratio % Procalcitonin (<0.15) ng/mL Coronavirus (PCR) Positive A (Negative) Hepatitis A IgM Ab (NonReactive) Hep Bs Antigen (Negative) Hep B Core IgM Ab (NonReactive) Hepatitis C Antibody (NonReactive) 11/18/20 11/18/20 11/18/20 Range/Units 11:35 16:34 21:03 WBC (4.5-11.0) K/mm3 RBC (3.65-5.03) M/mm3 Hgb (10.1-14.3) gm/dl Hct (30.3-42.9) % MCV (79-97) fl MCH (28-32) pg MCHC (30-34) % RDW (13.2-15.2) % Plt Count (140-440) K/mm3 Lymph % (Auto) (13.4-35.0) % Granite % (Auto) (0.0-7.3) % Eos % (Auto) (0.0-4.3) % Baso % (Auto) (0.0-1.8) % Lymph # (Auto) (1.2-5.4) K/mm3 Granite # (Auto) (0.0-0.8) K/mm3 Eos # (Auto) (0.0-0.4) K/mm3 Baso # (Auto) (0.0-0.1) K/mm3 Add Manual Diff Total Counted Seg Neutrophils % (40.0-70.0) % Seg Neuts % (Manual) (40.0-70.0) % Band Neutrophils % % Lymphocytes % (Manual) (13.4-35.0) % Monocytes % (Manual) (0.0-7.3) % Myelocytes % % Nucleated RBC % Seg Neutrophils # (1.8-7.7) K/mm3 Seg Neutrophils # Man (1.8-7.7) K/mm3 Band Neutrophils # K/mm3 Lymphocytes # (Manual) (1.2-5.4) K/mm3 Abs React Lymphs (Man) K/mm3 Monocytes # (Manual) (0.0-0.8) K/mm3 Eosinophils # (Manual) (0.0-0.4) K/mm3 Basophils # (Manual) (0.0-0.1) K/mm3 Metamyelocytes # K/mm3 Myelocytes # K/mm3 Promyelocytes # K/mm3 Blast Cells # K/mm3 WBC Morphology Hypersegmented Neuts Hyposegmented Neuts Hypogranular Neuts Smudge Cells Toxic Granulation Toxic Vacuolation Dohle Bodies Pelger-Huet Anomaly Gaby Rods Platelet Estimate Clumped Platelets Plt Clumps, EDTA Large Platelets Giant Platelets Platelet Satelliting Plt Morphology Comment RBC Morphology Dimorphic RBCs Polychromasia Hypochromasia Poikilocytosis Anisocytosis Microcytosis Macrocytosis Spherocytes Pappenheimer Bodies Sickle Cells Target Cells Tear Drop Cells Ovalocytes Helmet Cells [place] Bodies Oto Rings [place] Cells Bite Cells Crenated Cell Elliptocytes Acanthocytes (Spur) Rouleaux Hemoglobin C Crystals Schistocytes Malaria parasites Hoang Bodies Hem Pathologist Commnt D-Dimer (0-234) ng/mlDDU Sodium (137-145) mmol/L Potassium (3.6-5.0) mmol/L Chloride (98-107) mmol/L Carbon Dioxide (22-30) mmol/L Anion Gap mmol/L BUN (7-17) mg/dL Creatinine (0.6-1.2) mg/dL Estimated GFR ml/min BUN/Creatinine Ratio % Glucose (65-100) mg/dL POC Glucose 157 H 260 H 195 H (70-105) mg/dL Calcium (8.4-10.2) mg/dL Ferritin (10.0-200.0) ng/mL Total Bilirubin (0.1-1.2) mg/dL ALT (7-56) units/L Alkaline Phosphatase (35-129) units/L Troponin T (0.00-0.029) ng/mL C-Reactive Protein (0.00-1.30) mg/dL Total Protein (6.3-8.2) g/dL Albumin (3.9-5) g/dL Albumin/Globulin Ratio % Triglycerides (2-149) mg/dL Cholesterol (50-199) mg/dL LDL Cholesterol Direct (50-130) mg/dL HDL Cholesterol (40-59) mg/dL Cholesterol/HDL Ratio % Procalcitonin (<0.15) ng/mL Coronavirus (PCR) (Negative) Hepatitis A IgM Ab (NonReactive) Hep Bs Antigen (Negative) Hep B Core IgM Ab (NonReactive) Hepatitis C Antibody (NonReactive) 11/19/20 Range/Units 07:30 WBC (4.5-11.0) K/mm3 RBC (3.65-5.03) M/mm3 Hgb (10.1-14.3) gm/dl Hct (30.3-42.9) % MCV (79-97) fl MCH (28-32) pg MCHC (30-34) % RDW (13.2-15.2) % Plt Count (140-440) K/mm3 Lymph % (Auto) (13.4-35.0) % Granite % (Auto) (0.0-7.3) % Eos % (Auto) (0.0-4.3) % Baso % (Auto) (0.0-1.8) % Lymph # (Auto) (1.2-5.4) K/mm3 Granite # (Auto) (0.0-0.8) K/mm3 Eos # (Auto) (0.0-0.4) K/mm3 Baso # (Auto) (0.0-0.1) K/mm3 Add Manual Diff Total Counted Seg Neutrophils % (40.0-70.0) % Seg Neuts % (Manual) (40.0-70.0) % Band Neutrophils % % Lymphocytes % (Manual) (13.4-35.0) % Monocytes % (Manual) (0.0-7.3) % Myelocytes % % Nucleated RBC % Seg Neutrophils # (1.8-7.7) K/mm3 Seg Neutrophils # Man (1.8-7.7) K/mm3 Band Neutrophils # K/mm3 Lymphocytes # (Manual) (1.2-5.4) K/mm3 Abs React Lymphs (Man) K/mm3 Monocytes # (Manual) (0.0-0.8) K/mm3 Eosinophils # (Manual) (0.0-0.4) K/mm3 Basophils # (Manual) (0.0-0.1) K/mm3 Metamyelocytes # K/mm3 Myelocytes # K/mm3 Promyelocytes # K/mm3 Blast Cells # K/mm3 WBC Morphology Hypersegmented Neuts Hyposegmented Neuts Hypogranular Neuts Smudge Cells Toxic Granulation Toxic Vacuolation Dohle Bodies Pelger-Huet Anomaly Gaby Rods Platelet Estimate Clumped Platelets Plt Clumps, EDTA Large Platelets Giant Platelets Platelet Satelliting Plt Morphology Comment RBC Morphology Dimorphic RBCs Polychromasia Hypochromasia Poikilocytosis Anisocytosis Microcytosis Macrocytosis Spherocytes Pappenheimer Bodies Sickle Cells Target Cells Tear Drop Cells Ovalocytes Helmet Cells [place]on-[place] Bodies Oto Rings Claudette Cells Bite Cells Crenated Cell Elliptocytes Acanthocytes (Spur) Rouleaux Hemoglobin C Crystals Schistocytes Malaria parasites Hoang Bodies Hem Pathologist Commnt D-Dimer (0-234) ng/mlDDU Sodium (137-145) mmol/L Potassium (3.6-5.0) mmol/L Chloride (98-107) mmol/L Carbon Dioxide (22-30) mmol/L Anion Gap mmol/L BUN (7-17) mg/dL Creatinine (0.6-1.2) mg/dL Estimated GFR ml/min BUN/Creatinine Ratio % Glucose (65-100) mg/dL POC Glucose 225 H (70-105) mg/dL Calcium (8.4-10.2) mg/dL Ferritin (10.0-200.0) ng/mL Total Bilirubin (0.1-1.2) mg/dL ALT (7-56) units/L Alkaline Phosphatase (35-129) units/L Troponin T (0.00-0.029) ng/mL C-Reactive Protein (0.00-1.30) mg/dL Total Protein (6.3-8.2) g/dL Albumin (3.9-5) g/dL Albumin/Globulin Ratio % Triglycerides (2-149) mg/dL Cholesterol (50-199) mg/dL LDL Cholesterol Direct (50-130) mg/dL HDL Cholesterol (40-59) mg/dL Cholesterol/HDL Ratio % Procalcitonin (<0.15) ng/mL Coronavirus (PCR) (Negative) Hepatitis A IgM Ab (NonReactive) Hep Bs Antigen (Negative) Hep B Core IgM Ab (NonReactive) Hepatitis C Antibody (NonReactive) - Imaging and Cardiology Echo: report reviewed (07/2015 - EF 20-25%, mod LVH, LA mod dilated, RA mildly dilated, mild MR, mild TR, RVS 39mmHg) Cardiac cath: report reviewed (05/2014 - no significant coronary disease) EKG: report reviewed, image reviewed - EKG Interpretation EKG: no acute changes EKG interpretations - Telemetry EKG Rhythm: Atrial Fibrillation - EKG Supraventricular dysrhythmia: atrial fibrillation AV and intraventricular conduction: left bundle branch block Assessment and Plan Assessment: Acute on Chronic Respiratory Failure COVID-19 PNA Atypical Chest Pain Elevated Troponin (suspect chronic elevation in the setting of ESRD) ESRD/HD Chronic HFrEF NICMP COPD LEO Chronic AF (previously on Eliquis as an outpatient, ?discontinued) HTN DM Plan: Chest pain is atypical and pleuritic in nature, likely secondary to underlying PNA. Continue to trend cardiac enzymes. No acute indication for inpatient ischemic evaluation at this time. It is unclear why pt is no longer on Eliquis for AF. Recommend resumption if no contraindications or planned interventions. Of note, upon assessment today, pt states she is followed by Dr. Ellis with [facility]. Will transfer care to their service in AM if pt remains hospitalized. Otherwise recommend follow-up with [facility] [employer] Secretary upon discharge. Pt seen in conjunction with Dr. Ambriz, who agrees with the assessment and plan of care. - Patient Problems (1) Acute and chronic respiratory failure Current Visit: Yes Status: Acute (2) Pneumonia due to COVID-19 virus Current Visit: Yes Status: Acute (3) COPD (chronic obstructive pulmonary disease) Current Visit: Yes Status: Chronic (4) Atypical chest pain Current Visit: Yes Status: Acute (5) Elevated troponin Current Visit: Yes Status: Acute (6) LBBB (left bundle branch block) Current Visit: Yes Status: Chronic (7) ESRD on hemodialysis Current Visit: Yes Status: Chronic (8) NICM (nonischemic cardiomyopathy) Current Visit: Yes Status: Chronic (9) Chronic atrial fibrillation Current Visit: Yes Status: Chronic (10) HTN (hypertension) Current Visit: Yes Status: Chronic Qualifiers: Hypertension type: primary hypertension Qualified Code(s): I10 - Essential (primary) hypertension (11) Diabetes mellitus Current Visit: Yes Status: Chronic
--- NOTE | 2020-11-19 09:43 | Progress Note ---
Assessment and Plan - Patient Problems (1) Acute hypoxemic respiratory failure Current Visit: Yes Status: Acute Plan to address problem: On 2 L nasal cannula oxygen Continue IV Decadron/steroids (2) Suspected 2019 novel coronavirus infection Current Visit: Yes Status: Acute Plan to address problem: Coronavirus positive On IV Decadron/steroids (3) Pneumonia Current Visit: Yes Status: Acute Plan to address problem: Pneumonia protocol: Chest x-ray, CBC, CMP, IV antibiotic therapy, supplemental oxygen, pulse oximetry, nebulizer therapy, blood culture. (4) ESRD on hemodialysis Current Visit: Yes Status: Acute Plan to address problem: Nephrology team consulted in ED, dialysis as per renal team, avoid nephrotoxic agents. (5) DVT prophylaxis Current Visit: Yes Status: Acute Plan to address problem: SCD to bilateral lower extremities while in bed, prophylactic anticoagulation (6) Advance care planning Current Visit: Yes Status: Acute Plan to address problem: Disease education conducted, care plan discussed, diagnosis discussed, prognosis discussed, patient is full code, patient knowledges understanding agree with care plan, +30 minutes. Subjective Date of service: 11/19/20 Principal diagnosis: Hypoxia Interval history: 70 YO Female with ESRD on HD(T,R,Sa), COPD, CHF, HTN, CAD S/P Stent Placement presents to ED for evaluation. Patient reports "I cannot breathe". Patient states that she has experienced shortness of breath over the past 1 week with persistently worsening symptoms over the past 3 days. Patient was diagnosed with coronavirus infection 5 days ago. Patient presented to her dialysis clinic for her routine scheduled dialysis session and upon arrival the patient was found to be in distress and was found to have a pulse oximetry of 89%. EMS was notified and upon arrival the patient was found to be in distress and subsequently transported to [facility] for further care and evaluation of the aforementioned symptoms. The patient was seen and evaluated in the emergency department. All lab and imaging studies reviewed. Patient found to have a pulse oximetry of 88% on room air with exertion which is consistent with acute hypoxemic respiratory failure. Chest x-ray revealed bilateral pneumonia. Patient admitted to medical floor and initiated on coronavirus protocol. Patient denies fever, chills, chest pain, palpitation, productive cough, skin ra sh, recent ill contacts. Patient states that she is fully vaccinated against COVID-19. Prior admission on 07/08/2015 reviewed. All medication listed at time of admission has been reconciled. Advanced care planning conducted in ED. 11/18/2020 On 2 L nasal cannula oxygen We will try to discharge tomorrow with home 2 L nasal cannula oxygen We will discuss with case management tomorrow Objective - Constitutional Vitals: Vital Signs - 12hr 11/18/20 11/19/20 11/19/20 22:00 02:51 03:39 Temperature 98.3 F Pulse Rate 104 H Pulse Rate [ 97 H Right Brachial] Respiratory 16 16 Rate Blood Pressure 111/74 [Right] O2 Sat by Pulse 97 97 96 Oximetry General appearance: Present: no acute distress, well-nourished - EENT Eyes: PERRL, EOM intact ENT: hearing intact, clear oral mucosa Ears: bilateral: normal - Neck Neck: supple, normal ROM - Respiratory Respiratory effort: normal Respiratory: bilateral: CTA - Breasts Breasts: normal - Cardiovascular Rhythm: regular Heart Sounds: Present: S1 & S2. Absent: gallop, rub Extremities: pulses intact, No edema, normal color, Full ROM - Gastrointestinal General gastrointestinal: Present: soft, non-tender, non-distended, normal bowel sounds - Genitourinary Female genitourinary: normal - Integumentary Integumentary: clear, warm, dry - Musculoskeletal Musculoskeletal: 1, strength equal bilaterally - Neurologic Neurologic: moves all extremities - Psychiatric Psychiatric: memory intact, appropriate mood/affect, intact judgment & insight - Labs CBC & Chem 7: 11/17/20 21:36 11/17/20 21:36 Labs: Abnormal lab results 11/17/20 11/18/20 11/18/20 Range/Units Unknown 11:35 16:34 POC Glucose 157 H 260 H (70-105) mg/dL Coronavirus (PCR) Positive A (Negative) 11/18/20 11/19/20 Range/Units 21:03 07:30 POC Glucose 195 H 225 H (70-105) mg/dL Coronavirus (PCR) (Negative) HEART Score - HEART Score Troponin: Troponin T 0.070 ng/mL (0.00-0.029) H 11/16/20 11:20
[2020-11-19] MEDS: SPIRONOLACTONE 25 MG TAB PO SCH (10:17)
[2020-11-19] MEDS: HEPARIN 5,000 UNIT/1 ML VIAL SUB-Q SCH ×2 (10:18→23:23)
[2020-11-19] MEDS: LISINOPRIL 20 MG TAB PO SCH ×2 (10:18→23:23)
[2020-11-19] MEDS: carvediloL 12.5 MG TAB PO SCH ×2 (10:18→23:23)
[2020-11-19] MEDS: ASCORBIC ACID 500 MG TAB PO SCH ×2 (10:18→23:23)
[2020-11-19] MEDS: ZINC SULFATE 220 MG CAP PO SCH ×2 (10:18→23:22)
[2020-11-19] MEDS: CHOLECALCIFEROL (VIT D3) 1000 UNIT (25 mcg) TAB PO SCH (10:18)
[2020-11-19] MEDS: AZITHROMYCIN/NS 500 MG/250 ML 500 MG/250 ML BAG IV SCH (13:36)
[2020-11-19] MEDS: cefTRIAXone/NS 2 GM/100 ML 2 GM/100 ML BAG IV SCH (13:36)
[2020-11-19] MEDS: oxyCODONE /ACETAMINOPHEN 5-325MG TAB PO PRN (16:10)
[2020-11-19] MEDS: DIGOXIN 0.125 MG TAB PO SCH (17:56)
--- NOTE | 2020-11-19 18:30 | Progress Note ---
Assessment and Plan Assessment - End-stage renal disease on hemodialysis - Hypertension - COVID infection - Acute resp failure - Pleuritic chest pain Recommendations - Continue HD TTS, UF as tolerated - Vascular consult for access evaluation given high venous pressure - Monitor labs and volume status daily and assess need for additional dialysis session - Continue home antihypertensives - Hold antihypertensives on hemodialysis days for systolics less than 160 - No indication for Epogen with HD - Cardiology note reviewed - ESRD diet with 1.4 g/kg per day protein - Renally dose medication for creatinine clearance less than 15 cc/min Subjective Date of service: 11/19/20 Principal diagnosis: Hypoxia Interval history: Notes pleuritic chest pain. Objective - Exam Narrative Exam: Deferred to reduce transmission risk, primary team exam reviewed. - Vital Signs Vital signs: Vital Signs - 12hr 11/19/20 11/19/20 11/19/20 10:00 11:28 15:57 Temperature 98.8 F 98.4 F Pulse Rate 104 H 108 H Respiratory 20 22 Rate Blood Pressure 101/57 103/71 O2 Sat by Pulse 96 100 98 Oximetry - Lab 11/17/20 21:36 11/17/20 21:36 Most recent lab results Calcium 8.2 mg/dL (8.4-10.2) L 11/17/20 21:36 Medications & Allergies - Medications Allergies/Adverse Reactions: Allergies codeine Allergy (Verified 07/08/15 00:01) Swelling Home Medications: Home Medications Medication Instructions Recorded Confirmed Last Taken Type Digoxin [Lanoxin] 0.125 mg PO DAILY@1700 #30 tablet 07/16/15 11/18/20 Unknown Rx Spironolactone [Aldactone] 12.5 mg PO QDAY #30 tablet 07/16/15 11/18/20 Unknown Rx carvediloL [Coreg] 12.5 mg PO BID 60 Days tablet 07/16/15 11/18/20 Unknown Rx lisinopriL [Zestril TAB] 20 mg PO BID #60 tablet 07/16/15 11/18/20 Unknown Rx Acetaminophen [Tylenol] 650 mg PO Q8HR PRN #20 capsule 10/26/20 11/18/20 Unknown Rx Active Medications: Generic Name Dose Route Start Last Admin Trade Name Freq PRN Reason Stop Dose Admin Acetaminophen 650 mg 11/16/20 13:23 Acetaminophen 325 Mg Tab PO Q4H PRN Pain MILD(1-3)/Fever >100.5/ROBERT Albuterol 2.5 mg 11/16/20 13:23 Albuterol 2.5 Mg/3 Ml Nebu IH Q4HRT PRN Shortness Of Breath Albuterol 2 puff 11/17/20 16:00 Albuterol 8.5 Gm Mdi Inhalation IH Q6HRT PRN Shortness Of Breath Ascorbic Acid 500 mg 11/16/20 22:00 11/19/20 10:18 Ascorbic Acid 500 Mg Tab PO 500 mg BID ALAN Administration Carvedilol 12.5 mg 11/16/20 22:00 11/19/20 10:18 Carvedilol 12.5 Mg Tab PO 12.5 mg BID ALAN Administration Cholecalciferol 1,000 unit 11/17/20 10:00 11/19/20 10:18 Cholecalciferol (Vit D3) 1000 Unit (25 Mcg) Tab PO 1,000 unit QDAY ALAN Administration Digoxin 0.125 mg 11/18/20 17:00 11/19/20 17:56 Digoxin 0.125 Mg Tab PO 0.125 mg DAILY@1700 ALAN Administration Heparin Sodium (Porcine) 5,000 unit 11/16/20 15:00 11/19/20 10:18 Heparin 5,000 Unit/1 Ml Vial SUB-Q 5,000 unit Q12HR ALAN Administration Hydromorphone HCl 0.5 mg 11/16/20 13:23 Hydromorphone 1 Mg/1 Ml Inj IV Q12H PRN Pain , Severe (7-10) Sodium Chloride 100 mls @ 999 mls/hr 11/16/20 12:42 Nacl 0.9% IV CAPRICE PRN Hypotension Ceftriaxone Sodium 2 gm in 100 mls @ 200 mls/hr 11/16/20 14:00 11/19/20 13:36 Rocephin/Ns 2 Gm/100 Ml IV 11/20/20 14:29 200 mls/hr Q24H ALAN Administration Protocol Azithromycin 500 mg in 250 mls @ 250 mls/hr 11/16/20 14:00 11/19/20 13:36 Zithromax/Ns IV 11/20/20 14:59 250 mls/hr Q24H ALAN Administration Protocol Insulin Human Lispro 0 unit 11/18/20 07:30 11/19/20 16:30 Insulin Lispro 100 Unit/Ml SUB-Q 3 unit ACHS ALAN Administration Protocol Lisinopril 20 mg 11/16/20 22:00 11/19/20 10:18 Lisinopril 20 Mg Tab PO 20 mg BID ALAN Administration Loperamide HCl 2 mg 11/18/20 04:31 11/18/20 05:18 Loperamide 2 Mg Cap PO 2 mg Q2H PRN Administration Diarrhea Methylprednisolone Sodium Succinate 40 mg 11/16/20 14:00 11/19/20 14:00 Methylprednisolone Sod Succinate 40 Mg/1 Ml Inj IV 40 mg Q8H ALAN Administration Ondansetron HCl 4 mg 11/16/20 13:23 11/17/20 01:53 Ondansetron 4 Mg/2 Ml Inj IV 4 mg Q8H PRN Administration Nausea And Vomiting Oxycodone/Acetaminophen 1 tab 11/16/20 13:23 11/19/20 16:10 Oxycodone /Acetaminophen 5-325mg Tab PO 1 tab Q12H PRN Administration Pain, Moderate (4-6) Sodium Chloride 10 ml 11/16/20 22:00 11/19/20 10:18 Sodium Chloride 0.9% 10 Ml Flush Syringe IV 10 ml BID ALAN Administration Sodium Chloride 10 ml 11/16/20 13:23 Sodium Chloride 0.9% 10 Ml Flush Syringe IV PRN PRN LINE FLUSH Spironolactone 12.5 mg 11/17/20 10:00 11/19/20 10:17 Spironolactone 25 Mg Tab PO 12.5 mg QDAY ALAN Administration Zinc Sulfate 220 mg 11/16/20 22:00 11/19/20 10:18 Zinc Sulfate 220 Mg Cap PO 220 mg BID ALAN Administration
[2020-11-20] MEDS: ONDANSETRON 4 MG/2 ML INJ IV PRN (02:51)
[2020-11-20] MEDS: methylPREDNISolone Sod Succinate 40 MG/1 ML INJ IV SCH ×3 (06:20→22:45)
[2020-11-20] MEDS ORDERED: METOCLOPRAMIDE 10 MG/2 ML INJ IV ONE (07:00)
--- NOTE | 2020-11-20 08:30 | Progress Note ---
Assessment and Plan - Patient Problems (1) Acute hypoxemic respiratory failure Current Visit: Yes Status: Acute Plan to address problem: On 2 L nasal cannula oxygen Continue IV Decadron/steroids (2) Suspected 2019 novel coronavirus infection Current Visit: Yes Status: Acute Plan to address problem: Coronavirus positive On IV Decadron/steroids (3) Pneumonia Current Visit: Yes Status: Acute Plan to address problem: Pneumonia protocol: Chest x-ray, CBC, CMP, IV antibiotic therapy, supplemental oxygen, pulse oximetry, nebulizer therapy, blood culture. (4) ESRD on hemodialysis Current Visit: Yes Status: Acute Plan to address problem: Nephrology team consulted in ED, dialysis as per renal team, avoid nephrotoxic agents. (5) DVT prophylaxis Current Visit: Yes Status: Acute Plan to address problem: SCD to bilateral lower extremities while in bed, prophylactic anticoagulation (6) Advance care planning Current Visit: Yes Status: Acute Plan to address problem: Disease education conducted, care plan discussed, diagnosis discussed, prognosis discussed, patient is full code, patient knowledges understanding agree with care plan, +30 minutes. Subjective Date of service: 11/20/20 Principal diagnosis: Hypoxia Interval history: 70 YO Female with ESRD on HD(T,R,Sa), COPD, CHF, HTN, CAD S/P Stent Placement presents to ED for evaluation. Patient reports "I cannot breathe". Patient states that she has experienced shortness of breath over the past 1 week with persistently worsening symptoms over the past 3 days. Patient was diagnosed with coronavirus infection 5 days ago. Patient presented to her dialysis clinic for her routine scheduled dialysis session and upon arrival the patient was found to be in distress and was found to have a pulse oximetry of 89%. EMS was notified and upon arrival the patient was found to be in distress and subsequently transported to [facility] for further care and evaluation of the aforementioned symptoms. The patient was seen and evaluated in the emergency department. All lab and imaging studies reviewed. Patient found to have a pulse oximetry of 88% on room air with exertion which is consistent with acute hypoxemic respiratory failure. Chest x-ray revealed bilateral pneumonia. Patient admitted to medical floor and initiated on coronavirus protocol. Patient denies fever, chills, chest pain, palpitation, productive cough, skin ra sh, recent ill contacts. Patient states that she is fully vaccinated against COVID-19. Prior admission on 07/08/2015 reviewed. All medication listed at time of admission has been reconciled. Advanced care planning conducted in ED. 11/18/2020 On 2 L nasal cannula oxygen We will try to discharge tomorrow with home 2 L nasal cannula oxygen We will discuss with case management tomorrow Objective - Constitutional Vitals: Vital Signs - 12hr 11/19/20 11/19/20 11/20/20 22:00 23:25 06:47 Temperature 97.8 F Pulse Rate 106 H 107 H Respiratory 18 18 Rate Blood Pressure 147/77 122/69 O2 Sat by Pulse 94 99 95 Oximetry General appearance: Present: no acute distress, well-nourished - EENT Eyes: PERRL, EOM intact ENT: hearing intact, clear oral mucosa Ears: bilateral: normal - Neck Neck: supple, normal ROM - Respiratory Respiratory effort: normal Respiratory: bilateral: CTA - Breasts Breasts: normal - Cardiovascular Rhythm: regular Heart Sounds: Present: S1 & S2. Absent: gallop, rub Extremities: pulses intact, No edema, normal color, Full ROM - Gastrointestinal General gastrointestinal: Present: soft, non-tender, non-distended, normal bowel sounds - Genitourinary Female genitourinary: normal - Integumentary Integumentary: clear, warm, dry - Musculoskeletal Musculoskeletal: 1, strength equal bilaterally - Neurologic Neurologic: moves all extremities - Psychiatric Psychiatric: memory intact, appropriate mood/affect, intact judgment & insight - Labs CBC & Chem 7: 11/17/20 21:36 11/17/20 21:36 Labs: Abnormal lab results 11/19/20 11/19/20 11/19/20 Range/Units 11:26 14:02 15:55 POC Glucose 244 H 234 H (70-105) mg/dL Troponin T 0.033 H D (0.00-0.029) ng/mL 11/19/20 Range/Units 23:25 POC Glucose 221 H (70-105) mg/dL Troponin T (0.00-0.029) ng/mL HEART Score - HEART Score Troponin: Troponin T 0.033 ng/mL (0.00-0.029) H D 11/19/20 14:02
[2020-11-20] MEDS: INSULIN LISPRO 100 UNIT/ML SUB-Q SCH ×4 (09:56→22:37)
[2020-11-20] MEDS: SPIRONOLACTONE 25 MG TAB PO SCH (11:42)
[2020-11-20] MEDS: CHOLECALCIFEROL (VIT D3) 1000 UNIT (25 mcg) TAB PO SCH (11:43)
[2020-11-20] MEDS: ASCORBIC ACID 500 MG TAB PO SCH ×2 (11:43→22:39)
[2020-11-20] MEDS: HEPARIN 5,000 UNIT/1 ML VIAL SUB-Q SCH ×2 (11:43→22:37)
[2020-11-20] MEDS: carvediloL 12.5 MG TAB PO SCH ×2 (11:43→22:37)
[2020-11-20] MEDS: LISINOPRIL 20 MG TAB PO SCH ×2 (11:44→22:40)
[2020-11-20] MEDS: ZINC SULFATE 220 MG CAP PO SCH ×2 (11:44→22:40)
[2020-11-20] MEDS: cefTRIAXone/NS 2 GM/100 ML 2 GM/100 ML BAG IV SCH (17:42)
--- NOTE | 2020-11-20 17:46 | Progress Note ---
Assessment and Plan Assessment - End-stage renal disease on hemodialysis - Hypertension - COVID infection - Acute resp failure - Pleuritic chest pain Recommendations - Continue HD TTS, UF as tolerated - Vascular consulted for access evaluation given high venous pressure - Monitor labs and volume status daily and assess need for additional dialysis session - Continue home antihypertensives - Hold antihypertensives on hemodialysis days for systolics less than 160 - No indication for Epogen with HD - Cardiology note reviewed - Check labs - ESRD diet with 1.4 g/kg per day protein - Renally dose medication for creatinine clearance less than 15 cc/min Subjective Date of service: 11/20/20 Principal diagnosis: Hypoxia Interval history: On 2 L Objective - Exam Narrative Exam: Deferred to reduce transmission risk, primary team exam reviewed. - Vital Signs Vital signs: Vital Signs - 12hr 11/20/20 11/20/20 11/20/20 06:47 10:15 10:20 Temperature 98.0 F Pulse Rate 107 H 99 H 97 H Respiratory 18 20 Rate Blood Pressure 122/69 114/70 121/62 O2 Sat by Pulse 95 Oximetry O2 Sat by Pulse 95 Oximetry [ Anterior Bilateral] 11/20/20 11/20/20 11/20/20 10:30 10:45 11:00 Temperature Pulse Rate 100 H 101 H 104 H Respiratory Rate Blood Pressure 135/85 126/70 129/77 O2 Sat by Pulse Oximetry O2 Sat by Pulse Oximetry [ Anterior Bilateral] 11/20/20 11/20/20 11/20/20 11:15 11:30 11:45 Temperature Pulse Rate 94 H 96 H 97 H Respiratory Rate Blood Pressure 122/86 137/64 137/88 O2 Sat by Pulse Oximetry O2 Sat by Pulse Oximetry [ Anterior Bilateral] 11/20/20 11/20/20 11/20/20 12:00 12:15 12:30 Temperature Pulse Rate 98 H 101 H 101 H Respiratory Rate Blood Pressure 136/78 137/91 142/87 O2 Sat by Pulse Oximetry O2 Sat by Pulse Oximetry [ Anterior Bilateral] 11/20/20 11/20/20 11/20/20 12:45 13:00 13:15 Temperature Pulse Rate 101 H 94 H 101 H Respiratory Rate Blood Pressure 139/84 145/84 143/84 O2 Sat by Pulse Oximetry O2 Sat by Pulse Oximetry [ Anterior Bilateral] 11/20/20 11/20/20 11/20/20 13:30 13:50 14:30 Temperature 97.7 F Pulse Rate 100 H 104 H 101 H Respiratory 18 Rate Blood Pressure 143/76 155/89 158/84 O2 Sat by Pulse Oximetry O2 Sat by Pulse 96 Oximetry [ Anterior Bilateral] - Lab 11/17/20 21:36 11/17/20 21:36 Most recent lab results Calcium 8.2 mg/dL (8.4-10.2) L 11/17/20 21:36 Medications & Allergies - Medications Allergies/Adverse Reactions: Allergies codeine Allergy (Verified 07/08/15 00:01) Swelling Home Medications: Home Medications Medication Instructions Recorded Confirmed Last Taken Type Digoxin [Lanoxin] 0.125 mg PO DAILY@1700 #30 tablet 07/16/15 11/18/20 Unknown Rx Spironolactone [Aldactone] 12.5 mg PO QDAY #30 tablet 07/16/15 11/18/20 Unknown Rx carvediloL [Coreg] 12.5 mg PO BID 60 Days tablet 07/16/15 11/18/20 Unknown Rx lisinopriL [Zestril TAB] 20 mg PO BID #60 tablet 07/16/15 11/18/20 Unknown Rx Acetaminophen [Tylenol] 650 mg PO Q8HR PRN #20 capsule 10/26/20 11/18/20 Unknown Rx Active Medications: Generic Name Dose Route Start Last Admin Trade Name Freq PRN Reason Stop Dose Admin Acetaminophen 650 mg 11/16/20 13:23 Acetaminophen 325 Mg Tab PO Q4H PRN Pain MILD(1-3)/Fever >100.5/ROBERT Albuterol 2.5 mg 11/16/20 13:23 Albuterol 2.5 Mg/3 Ml Nebu IH Q4HRT PRN Shortness Of Breath Albuterol 2 puff 11/17/20 16:00 Albuterol 8.5 Gm Mdi Inhalation IH Q6HRT PRN Shortness Of Breath Ascorbic Acid 500 mg 11/16/20 22:00 11/20/20 11:43 Ascorbic Acid 500 Mg Tab PO Not Given BID ALAN Carvedilol 12.5 mg 11/16/20 22:00 11/20/20 11:43 Carvedilol 12.5 Mg Tab PO Not Given BID ALAN Cholecalciferol 1,000 unit 11/17/20 10:00 11/20/20 11:43 Cholecalciferol (Vit D3) 1000 Unit (25 Mcg) Tab PO Not Given QDAY [facility] Digoxin 0.125 mg 11/18/20 17:00 11/19/20 17:56 Digoxin 0.125 Mg Tab PO 0.125 mg DAILY@1700 ALAN Administration Heparin Sodium (Porcine) 5,000 unit 11/16/20 15:00 11/20/20 11:43 Heparin 5,000 Unit/1 Ml Vial SUB-Q Not Given Q12HR [facility] Hydromorphone HCl 0.5 mg 11/16/20 13:23 Hydromorphone 1 Mg/1 Ml Inj IV Q12H PRN Pain , Severe (7-10) Sodium Chloride 100 mls @ 999 mls/hr 11/16/20 12:42 Nacl 0.9% IV CAPRICE PRN Hypotension Insulin Human Lispro 0 unit 11/18/20 07:30 11/20/20 13:39 Insulin Lispro 100 Unit/Ml SUB-Q Not Given ACHS [facility] Protocol Lisinopril 20 mg 11/16/20 22:00 11/20/20 11:44 Lisinopril 20 Mg Tab PO Not Given BID [facility] Loperamide HCl 2 mg 11/18/20 04:31 11/18/20 05:18 Loperamide 2 Mg Cap PO 2 mg Q2H PRN Administration Diarrhea Methylprednisolone Sodium Succinate 40 mg 11/16/20 14:00 11/20/20 17:41 Methylprednisolone Sod Succinate 40 Mg/1 Ml Inj IV Not Given Q8H [facility] Ondansetron HCl 4 mg 11/16/20 13:23 11/20/20 02:51 Ondansetron 4 Mg/2 Ml Inj IV 4 mg Q8H PRN Administration Nausea And Vomiting Oxycodone/Acetaminophen 1 tab 11/16/20 13:23 11/19/20 16:10 Oxycodone /Acetaminophen 5-325mg Tab PO 1 tab Q12H PRN Administration Pain, Moderate (4-6) Sodium Chloride 10 ml 11/16/20 22:00 11/19/20 23:25 Sodium Chloride 0.9% 10 Ml Flush Syringe IV 10 ml BID ALAN Administration Sodium Chloride 10 ml 11/16/20 13:23 Sodium Chloride 0.9% 10 Ml Flush Syringe IV PRN PRN LINE FLUSH Spironolactone 12.5 mg 11/17/20 10:00 11/20/20 11:42 Spironolactone 25 Mg Tab PO Not Given QDAY ALAN Zinc Sulfate 220 mg 11/16/20 22:00 11/20/20 11:44 Zinc Sulfate 220 Mg Cap PO Not Given BID ALAN
[2020-11-20] MEDS: AZITHROMYCIN/NS 500 MG/250 ML 500 MG/250 ML BAG IV SCH (17:49)
[2020-11-20] MEDS: DIGOXIN 0.125 MG TAB PO SCH (17:51)
[2020-11-20 20:30] LABS: Calcium 9.3 mg/dL (8.4-10.2)
[2020-11-21] MEDS: methylPREDNISolone Sod Succinate 40 MG/1 ML INJ IV SCH ×2 (06:58→17:22)
[2020-11-21] MEDS: INSULIN LISPRO 100 UNIT/ML SUB-Q SCH ×3 (09:17→17:24)
[2020-11-21] MEDS: HEPARIN 5,000 UNIT/1 ML VIAL SUB-Q SCH (12:05)
[2020-11-21] MEDS: ASCORBIC ACID 500 MG TAB PO SCH (12:06)
[2020-11-21] MEDS: LISINOPRIL 20 MG TAB PO SCH (12:08)
[2020-11-21] MEDS: ZINC SULFATE 220 MG CAP PO SCH (12:09)
[2020-11-21] MEDS: carvediloL 12.5 MG TAB PO SCH (12:11)
[2020-11-21] MEDS: CHOLECALCIFEROL (VIT D3) 1000 UNIT (25 mcg) TAB PO SCH (12:11)
[2020-11-21] MEDS: SPIRONOLACTONE 25 MG TAB PO SCH (12:21)
--- NOTE | 2020-11-21 16:29 | Progress Note ---
Assessment and Plan - Patient Problems (1) Acute hypoxemic respiratory failure Current Visit: Yes Status: Acute Plan to address problem: On 2 L nasal cannula oxygen Continue IV Decadron/steroids (2) Suspected 2019 novel coronavirus infection Current Visit: Yes Status: Acute Plan to address problem: Coronavirus positive On IV Decadron/steroids (3) Pneumonia Current Visit: Yes Status: Acute Plan to address problem: Pneumonia protocol: Chest x-ray, CBC, CMP, IV antibiotic therapy, supplemental oxygen, pulse oximetry, nebulizer therapy, blood culture. (4) ESRD on hemodialysis Current Visit: Yes Status: Acute Plan to address problem: Nephrology team consulted in ED, dialysis as per renal team, avoid nephrotoxic agents. (5) DVT prophylaxis Current Visit: Yes Status: Acute Plan to address problem: SCD to bilateral lower extremities while in bed, prophylactic anticoagulation (6) Advance care planning Current Visit: Yes Status: Acute Plan to address problem: Disease education conducted, care plan discussed, diagnosis discussed, prognosis discussed, patient is full code, patient knowledges understanding agree with care plan, +30 minutes. Subjective Date of service: 11/21/20 Principal diagnosis: Hypoxia Interval history: 70 YO Female with ESRD on HD(T,R,Sa), COPD, CHF, HTN, CAD S/P Stent Placement presents to ED for evaluation. Patient reports "I cannot breathe". Patient states that she has experienced shortness of breath over the past 1 week with persistently worsening symptoms over the past 3 days. Patient was diagnosed with coronavirus infection 5 days ago. Patient presented to her dialysis clinic for her routine scheduled dialysis session and upon arrival the patient was found to be in distress and was found to have a pulse oximetry of 89%. EMS was notified and upon arrival the patient was found to be in distress and subsequently transported to [facility] for further care and evaluation of the aforementioned symptoms. The patient was seen and evaluated in the emergency department. All lab and imaging studies reviewed. Patient found to have a pulse oximetry of 88% on room air with exertion which is consistent with acute hypoxemic respiratory failure. Chest x-ray revealed bilateral pneumonia. Patient admitted to medical floor and initiated on coronavirus protocol. Patient denies fever, chills, chest pain, palpitation, productive cough, skin ra sh, recent ill contacts. Patient states that she is fully vaccinated against COVID-19. Prior admission on 07/08/2015 reviewed. All medication listed at time of admission has been reconciled. Advanced care planning conducted in ED. 11/18/2020 On 2 L nasal cannula oxygen We will try to discharge tomorrow with home 2 L nasal cannula oxygen We will discuss with case management tomorrow Objective - Constitutional Vitals: Vital Signs - 12hr 11/21/20 11/21/20 11/21/20 06:12 11:32 12:08 Temperature 97.9 F 98.2 F Pulse Rate 104 H 109 H 109 H Respiratory 20 18 Rate Blood Pressure 105/54 110/63 110/63 O2 Sat by Pulse 92 95 Oximetry 11/21/20 12:21 Temperature Pulse Rate 109 H Respiratory Rate Blood Pressure 110/63 O2 Sat by Pulse Oximetry General appearance: Present: no acute distress, well-nourished - EENT Eyes: PERRL, EOM intact ENT: hearing intact, clear oral mucosa Ears: bilateral: normal - Neck Neck: supple, normal ROM - Respiratory Respiratory effort: normal Respiratory: bilateral: CTA - Breasts Breasts: normal - Cardiovascular Rhythm: regular Heart Sounds: Present: S1 & S2. Absent: gallop, rub Extremities: pulses intact, No edema, normal color, Full ROM - Gastrointestinal General gastrointestinal: Present: soft, non-tender, non-distended, normal bowel sounds - Genitourinary Female genitourinary: normal - Integumentary Integumentary: clear, warm, dry - Musculoskeletal Musculoskeletal: 1, strength equal bilaterally - Neurologic Neurologic: moves all extremities - Psychiatric Psychiatric: memory intact, appropriate mood/affect, intact judgment & insight - Labs CBC & Chem 7: 11/17/20 21:36 11/20/20 19:54 Labs: Abnormal lab results 11/20/20 11/20/20 11/21/20 Range/Units 19:54 21:03 08:00 Chloride 97.9 L (98-107) mmol/L BUN 43 H (7-17) mg/dL Creatinine 3.9 H (0.6-1.2) mg/dL Glucose 368 H (65-100) mg/dL POC Glucose 375 H 194 H (70-105) mg/dL 11/21/20 11/21/20 Range/Units 11:32 16:05 Chloride (98-107) mmol/L BUN (7-17) mg/dL Creatinine (0.6-1.2) mg/dL Glucose (65-100) mg/dL POC Glucose 370 H 261 H (70-105) mg/dL HEART Score - HEART Score Troponin: Troponin T 0.033 ng/mL (0.00-0.029) H D 11/19/20 14:02
[2020-11-21 16:37] VITALS: BP 120/71
[2020-11-21] MEDS: DIGOXIN 0.125 MG TAB PO SCH (17:26)
--- NOTE | 2020-11-21 18:18 | Progress Note ---
Assessment and Plan Assessment - End-stage renal disease on hemodialysis - Hypertension - COVID infection - Acute resp failure - Pleuritic chest pain Recommendations - Continue HD TTS, UF as tolerated - Evaluated by vascular given high venous pressure - Monitor labs and volume status daily and assess need for additional dialysis session - Continue home antihypertensives - Hold antihypertensives on hemodialysis days for systolics less than 160 - No indication for Epogen with HD - Cardiology note reviewed - COVID t/m as per primary - Monitor labs - ESRD diet with 1.4 g/kg per day protein - Renally dose medication for creatinine clearance less than 15 cc/min Subjective Date of service: 11/21/20 Principal diagnosis: Hypoxia Interval history: Remains on 2 L Objective - Exam Narrative Exam: Deferred to reduce transmission risk, primary team exam reviewed. - Vital Signs Vital signs: Vital Signs - 12hr 11/21/20 11/21/20 11/21/20 11:32 12:08 12:21 Temperature 98.2 F Pulse Rate 109 H 109 H 109 H Respiratory 18 Rate Blood Pressure 110/63 110/63 110/63 O2 Sat by Pulse 95 Oximetry 11/21/20 11/21/20 16:05 17:26 Temperature 97.6 F Pulse Rate 109 H 109 H Respiratory 18 Rate Blood Pressure 120/71 120/71 O2 Sat by Pulse 95 Oximetry - Lab 11/17/20 21:36 11/20/20 19:54 Most recent lab results Calcium 9.3 mg/dL (8.4-10.2) 11/20/20 19:54 Medications & Allergies - Medications Allergies/Adverse Reactions: Allergies codeine Allergy (Verified 07/08/15 00:01) Swelling Home Medications: Home Medications Medication Instructions Recorded Confirmed Last Taken Type Acetaminophen [Tylenol] 650 mg PO Q8HR PRN #20 capsule 10/26/20 11/18/20 Unknown Rx Albuterol Mdi (or & Nicu Only) 2 puff IH Q6HRT PRN #1 inha 11/21/20 Unknown Rx [ProAir HFA Inhaler] Cholecalciferol Vit D3 [Vitamin D3 1,000 unit PO QDAY #30 tablet 11/21/20 Unkn own Rx 1,000 UNIT TAB] Digoxin [Lanoxin] 0.125 mg PO DAILY@1700 30 Days #30 11/21/20 Unknown Rx tablet Spironolactone [Aldactone] 12.5 mg PO QDAY #30 tablet 11/21/20 Unknown Rx Zinc Sulfate 220 mg PO BID #14 capsule 11/21/20 Unknown Rx carvediloL [Coreg] 12.5 mg PO BID 60 Days #60 tablet 11/21/20 Unknown Rx dexAMETHasone [Decadron] 4 mg PO QDAY #7 tablet 11/21/20 Unknown Rx lisinopriL [Zestril TAB] 20 mg PO BID #60 tablet 11/21/20 Unknown Rx Active Medications: Generic Name Dose Route Start Last Admin Trade Name Freq PRN Reason Stop Dose Admin Acetaminophen 650 mg 11/16/20 13:23 Acetaminophen 325 Mg Tab PO Q4H PRN Pain MILD(1-3)/Fever >100.5/ROBERT Albuterol 2.5 mg 11/16/20 13:23 Albuterol 2.5 Mg/3 Ml Nebu IH Q4HRT PRN Shortness Of Breath Albuterol 2 puff 11/17/20 16:00 Albuterol 8.5 Gm Mdi Inhalation IH Q6HRT PRN Shortness Of Breath Ascorbic Acid 500 mg 11/16/20 22:00 11/21/20 12:06 Ascorbic Acid 500 Mg Tab PO 500 mg BID ALAN Administration Carvedilol 12.5 mg 11/16/20 22:00 11/21/20 12:11 Carvedilol 12.5 Mg Tab PO Not Given BID ALAN Cholecalciferol 1,000 unit 11/17/20 10:00 11/21/20 12:11 Cholecalciferol (Vit D3) 1000 Unit (25 Mcg) Tab PO 1,000 unit QDAY ALAN Administration Digoxin 0.125 mg 11/18/20 17:00 11/21/20 17:26 Digoxin 0.125 Mg Tab PO 0.125 mg DAILY@1700 ALAN Administration Heparin Sodium (Porcine) 5,000 unit 11/16/20 15:00 11/21/20 12:05 Heparin 5,000 Unit/1 Ml Vial SUB-Q 5,000 unit Q12HR ALAN Administration Hydromorphone HCl 0.5 mg 11/16/20 13:23 Hydromorphone 1 Mg/1 Ml Inj IV Q12H PRN Pain , Severe (7-10) Sodium Chloride 100 mls @ 999 mls/hr 11/16/20 12:42 Nacl 0.9% IV CAPRICE PRN Hypotension Insulin Human Lispro 0 unit 11/18/20 07:30 11/21/20 17:24 Insulin Lispro 100 Unit/Ml SUB-Q 4 unit ACHS ALAN Administration Protocol Lisinopril 20 mg 11/16/20 22:00 11/21/20 12:08 Lisinopril 20 Mg Tab PO Not Given BID ALAN Loperamide HCl 2 mg 11/18/20 04:31 11/18/20 05:18 Loperamide 2 Mg Cap PO 2 mg Q2H PRN Administration Diarrhea Methylprednisolone Sodium Succinate 40 mg 11/16/20 14:00 11/21/20 17:22 Methylprednisolone Sod Succinate 40 Mg/1 Ml Inj IV 40 mg Q8H ALAN Administration Ondansetron HCl 4 mg 11/16/20 13:23 11/20/20 02:51 Ondansetron 4 Mg/2 Ml Inj IV 4 mg Q8H PRN Administration Nausea And Vomiting Oxycodone/Acetaminophen 1 tab 11/16/20 13:23 11/19/20 16:10 Oxycodone /Acetaminophen 5-325mg Tab PO 1 tab Q12H PRN Administration Pain, Moderate (4-6) Sodium Chloride 10 ml 11/16/20 22:00 11/21/20 12:06 Sodium Chloride 0.9% 10 Ml Flush Syringe IV 10 ml BID ALAN Administration Sodium Chloride 10 ml 11/16/20 13:23 Sodium Chloride 0.9% 10 Ml Flush Syringe IV PRN PRN LINE FLUSH Spironolactone 12.5 mg 11/17/20 10:00 11/21/20 12:21 Spironolactone 25 Mg Tab PO 12.5 mg QDAY ALAN Administration Zinc Sulfate 220 mg 11/16/20 22:00 11/21/20 12:09 Zinc Sulfate 220 Mg Cap PO 220 mg BID ALAN Administration
--- NOTE | 2020-11-22 00:36 | Progress Note ---
Subjective Date of service: 11/22/20 Principal diagnosis: Hypoxia Interval history: Assessment - End-stage renal disease on hemodialysis - Hypertension - COVID infection - Acute resp failure - Pleuritic chest pain Recommendations - Continue HD TTS, UF as tolerated - Evaluated by vascular given high venous pressure - Monitor labs and volume status daily and assess need for additional dialysis session - Continue home antihypertensives - Hold antihypertensives on hemodialysis days for systolics less than 160 - No indication for Epogen with HD - Cardiology note reviewed - COVID t/m as per primary - Monitor labs - ESRD diet with 1.4 g/kg per day protein - Renally dose medication for creatinine clearance less than 15 cc/min Subjective Principal diagnosis: Hypoxia Interval history: Resting in bed today Objective - Exam Narrative Exam: Deferred to reduce transmission risk, primary team exam reviewed. Objective - Vital Signs Vital signs: Vital Signs - 12hr 11/21/20 11/21/20 16:05 17:26 Temperature 97.6 F Pulse Rate 109 H 109 H Respiratory 18 Rate Blood Pressure 120/71 120/71 O2 Sat by Pulse 95 Oximetry - Lab 11/17/20 21:36 11/20/20 19:54 Most recent lab results Calcium 9.3 mg/dL (8.4-10.2) 11/20/20 19:54 Medications & Allergies - Medications Allergies/Adverse Reactions: Allergies codeine Allergy (Verified 07/08/15 00:01) Swelling Home Medications: Home Medications Medication Instructions Recorded Confirmed Last Taken Type Acetaminophen [Tylenol] 650 mg PO Q8HR PRN #20 capsule 10/26/20 11/18/20 Unknown Rx Albuterol Mdi (or & Nicu Only) 2 puff IH Q6HRT PRN #1 inha 11/21/20 Unknown Rx [ProAir HFA Inhaler] Cholecalciferol Vit D3 [Vitamin D3 1,000 unit PO QDAY #30 tablet 11/21/20 Unknown Rx 1,000 UNIT TAB] Digoxin [Lanoxin] 0.125 mg PO DAILY@1700 30 Days #30 11/21/20 Unknown Rx tablet Spironolactone [Aldactone] 12.5 mg PO QDAY #30 tablet 11/21/20 Unknown Rx Zinc Sulfate 220 mg PO BID #14 capsule 11/21/20 Unknown Rx carvediloL [Coreg] 12.5 mg PO BID 60 Days #60 tablet 11/21/20 Unknown Rx dexAMETHasone [Decadron] 4 mg PO QDAY #7 tablet 11/21/20 Unknown Rx lisinopriL [Zestril TAB] 20 mg PO BID #60 tablet 11/21/20 Unknown Rx Active Medications: Generic Name Dose Route Start Last Admin Trade Name Freq PRN Reason Stop Dose Admin Acetaminophen 650 mg 11/16/20 13:23 Acetaminophen 325 Mg Tab PO Q4H PRN Pain MILD(1-3)/Fever >100.5/ROBERT Albuterol 2.5 mg 11/16/20 13:23 Albuterol 2.5 Mg/3 Ml Nebu IH Q4HRT PRN Shortness Of Breath Albuterol 2 puff 11/17/20 16:00 Albuterol 8.5 Gm Mdi Inhalation IH Q6HRT PRN Shortness Of Breath Ascorbic Acid 500 mg 11/16/20 22:00 11/21/20 12:06 Ascorbic Acid 500 Mg Tab PO 500 mg BID ALAN Administration Carvedilol 12.5 mg 11/16/20 22:00 11/21/20 12:11 Carvedilol 12.5 Mg Tab PO Not Given BID ALAN Cholecalciferol 1,000 unit 11/17/20 10:00 11/21/20 12:11 Cholecalciferol (Vit D3) 1000 Unit (25 Mcg) Tab PO 1,000 unit QDAY ALAN Administration Digoxin 0.125 mg 11/18/20 17:00 11/21/20 17:26 Digoxin 0.125 Mg Tab PO 0.125 mg DAILY@1700 ALAN Administration Heparin Sodium (Porcine) 5,000 unit 11/16/20 15:00 11/21/20 12:05 Heparin 5,000 Unit/1 Ml Vial SUB-Q 5,000 unit Q12HR ALAN Administration Hydromorphone HCl 0.5 mg 11/16/20 13:23 Hydromorphone 1 Mg/1 Ml Inj IV Q12H PRN Pain , Severe (7-10) Sodium Chloride 100 mls @ 999 mls/hr 11/16/20 12:42 Nacl 0.9% IV CAPRICE PRN Hypotension Insulin Human Lispro 0 unit 11/18/20 07:30 11/21/20 17:24 Insulin Lispro 100 Unit/Ml SUB-Q 4 unit ACHS ALAN Administration Protocol Lisinopril 20 mg 11/16/20 22:00 11/21/20 12:08 Lisinopril 20 Mg Tab PO Not Given BID ALAN Loperamide HCl 2 mg 11/18/20 04:31 11/18/20 05:18 Loperamide 2 Mg Cap PO 2 mg Q2H PRN Administration Diarrhea Methylprednisolone Sodium Succinate 40 mg 11/16/20 14:00 11/21/20 17:22 Methylprednisolone Sod Succinate 40 Mg/1 Ml Inj IV 40 mg Q8H ALAN Administration Ondansetron HCl 4 mg 11/16/20 13:23 11/20/20 02:51 Ondansetron 4 Mg/2 Ml Inj IV 4 mg Q8H PRN Administration Nausea And Vomiting Oxycodone/Acetaminophen 1 tab 11/16/20 13:23 11/19/20 16:10 Oxycodone /Acetaminophen 5-325mg Tab PO 1 tab Q12H PRN Administration Pain, Moderate (4-6) Sodium Chloride 10 ml 11/16/20 22:00 11/21/20 12:06 Sodium Chloride 0.9% 10 Ml Flush Syringe IV 10 ml BID ALAN Administration Sodium Chloride 10 ml 11/16/20 13:23 Sodium Chloride 0.9% 10 Ml Flush Syringe IV PRN PRN LINE FLUSH Spironolactone 12.5 mg 11/17/20 10:00 11/21/20 12:21 Spironolactone 25 Mg Tab PO 12.5 mg QDAY ALAN Administration Zinc Sulfate 220 mg 11/16/20 22:00 11/21/20 12:09 Zinc Sulfate 220 Mg Cap PO 220 mg BID ALAN Administration
== END 2020-11-21 20:30 | disposition home health service (06) | DRG 177 ==
LOC: ED 09:06 → 3A 13:23
PROVIDERS: ADMIT Internal Medicine; ATTEND Internal Medicine
PROC: 5A1D70Z Performance of Urinary Filtration, Intermittent, Less than 6 Hours Per Day (ICD-10-PCS; principal; 2020-11-16)
PROC: 5A1D70Z Performance of Urinary Filtration, Intermittent, Less than 6 Hours Per Day (ICD-10-PCS; 2020-11-18)
PROC: 5A1D70Z Performance of Urinary Filtration, Intermittent, Less than 6 Hours Per Day (ICD-10-PCS; 2020-11-20)
DX: U07.1 COVID-19 (principal); N18.6 End stage renal disease; J12.82 Pneumonia due to coronavirus disease 2019; J96.21 Acute and chronic respiratory failure with hypoxia; I50.23 Acute on chronic systolic (congestive) heart failure; I13.2 Hypertensive heart and chronic kidney disease with heart failure and with stage 5 chronic kidney disease, or end stage renal disease; I48.20 Chronic atrial fibrillation, unspecified; I42.8 Other cardiomyopathies; J44.1 Chronic obstructive pulmonary disease with (acute) exacerbation; I44.7 Left bundle-branch block, unspecified; I25.10 Atherosclerotic heart disease of native coronary artery without angina pectoris; E11.22 Type 2 diabetes mellitus with diabetic chronic kidney disease; R77.8 Other specified abnormalities of plasma proteins; G47.33 Obstructive sleep apnea (adult) (pediatric); F32.9 Major depressive disorder, single episode, unspecified; Z90.710 Acquired absence of both cervix and uterus; Z82.49 Family history of ischemic heart disease and other diseases of the circulatory system; Z99.2 Dependence on renal dialysis; Z83.3 Family history of diabetes mellitus; Z88.5 Allergy status to narcotic agent; Z79.899 Other long term (current) drug therapy; Z95.5 Presence of coronary angioplasty implant and graft
CPT/HCPCS: 36415; 71046; 80048; 80053; 80061; 80074; 82728; 82947; 82962; 83615; 84145; 84484; 85007; 85025; 85379; 86140; 93005; 94760; G0378; J0456; J0696; J1644; J1815; J2405; J2765; J2920; U0003

== ENCOUNTER 2021-11-29 10:10 | Emergency (ER) | payer MEDICARE ==
--- NOTE | 2021-11-29 13:06 | Emergency Department Report ---
ED Head Trauma HPI - General Chief complaint: Headache Stated complaint: HEADACHE Time Seen by Provider: 11/29/21 12:57 Source: patient, EMS Mode of arrival: Stretcher Limitations: No Limitations - History of Present Illness Initial comments: Patient is 71-year-old female brought in by EMS for evaluation of head injury that occurred this morning. States she was being picked up for dialysis via EMS and bumped her head while being placed in the vehicle. Complains of pain in her occipital region along with a headache. She is on Eliquis for A. fib. - Related Data Previous Rx's Medication Instructions Recorded Last Taken Type Acetaminophen [Tylenol] 650 mg PO Q8HR PRN #20 capsule 10/26/20 Unknown Rx Albuterol Mdi (or & Nicu Only) 2 puff IH Q6HRT PRN #1 inha 11/21/20 Unknown Rx [ProAir HFA Inhaler] Cholecalciferol Vit D3 [Vitamin D3 1,000 unit PO QDAY #30 tablet 11/21/20 Unknown Rx 1,000 UNIT TAB] Digoxin [Lanoxin] 0.125 mg PO DAILY@1700 30 Days #30 11/21/20 Unknown Rx tablet Spironolactone [Aldactone] 12.5 mg PO QDAY #30 tablet 11/21/20 Unknown Rx Zinc Sulfate 220 mg PO BID #14 capsule 11/21/20 Unknown Rx carvediloL [Coreg] 12.5 mg PO BID 60 Days #60 tablet 11/21/20 Unknown Rx dexAMETHasone [Decadron] 4 mg PO QDAY #7 tablet 11/21/20 Unknown Rx lisinopriL [Zestril TAB] 20 mg PO BID #60 tablet 11/21/20 Unknown Rx Allergies/Adverse reactions: Allergies Allergy/AdvReac Type Severity Reaction Status Date / Time codeine Allergy Swelling Verified 11/29/21 10:19 lisinopril Allergy Angioedema Verified 11/29/21 10:19 ED Review of Systems ROS: Stated complaint: HEADACHE Other details as noted in HPI Constitutional: denies: chills, fever Respiratory: denies: cough, shortness of breath, wheezing Cardiovascular: denies: chest pain, palpitations Endocrine: no symptoms reported Gastrointestinal: denies: abdominal pain, nausea, diarrhea Musculoskeletal: denies: back pain, joint swelling, arthralgia Skin: denies: rash, lesions Neurological: headache Psychiatric: denies: anxiety, depression ED Past Medical Hx - Past Medical History Hx Hypertension: Yes Hx Congestive Heart Failure: Yes Hx Diabetes: Yes Hx Renal Disease: Yes (End-stage renal disease on hemodialysis Sunday) Hx Psychiatric Treatment: Yes (depression) Hx COPD: Yes Additional medical history: sleep apnea - Surgical History Hx Coronary Stent: Yes Additional Surgical History: partial hysterectomy - Social History Smoking Status: Never Smoker - Medications Home Medications: Home Medications Medication Instructions Recorded Confirmed Last Taken Type Acetaminophen [Tylenol] 650 mg PO Q8HR PRN #20 capsule 10/26/20 11/18/20 Unknown Rx Albuterol Mdi (or & Nicu Only) 2 puff IH Q6HRT PRN #1 inha 11/21/20 Unknown Rx [ProAir HFA Inhaler] Cholecalciferol Vit D3 [Vitamin D3 1,000 unit PO QDAY #30 tablet 11/21/20 Unknown Rx 1,000 UNIT TAB] Digoxin [Lanoxin] 0.125 mg PO DAILY@1700 30 Days #30 11/21/20 Unknown Rx tablet Spironolactone [Aldactone] 12.5 mg PO QDAY #30 tablet 11/21/20 Unknown Rx Zinc Sulfate 220 mg PO BID #14 capsule 11/21/20 Unknown Rx carvediloL [Coreg] 12.5 mg PO BID 60 Days #60 tablet 11/21/20 Unknown Rx dexAMETHasone [Decadron] 4 mg PO QDAY #7 tablet 11/21/20 Unknown Rx lisinopriL [Zestril TAB] 20 mg PO BID #60 tablet 11/21/20 Unknown Rx ED Physical Exam - General Limitations: No Limitations General appearance: alert, in no apparent distress - Head Head exam: Present: atraumatic, normocephalic, other (Tenderness to occipital region) - Respiratory Respiratory exam: Present: normal lung sounds bilaterally. Absent: respiratory distress - Cardiovascular Cardiovascular Exam: Present: regular rate, normal rhythm, normal heart sounds - GI/Abdominal GI/Abdominal exam: Present: soft. Absent: distended, tenderness - Neurological Exam Neurological exam: Present: alert, oriented X3, CN II-XII intact - Psychiatric Psychiatric exam: Present: normal affect, normal mood - Skin Skin exam: Present: warm, dry, intact, normal color ED Course Vital Signs 11/29/21 10:10 Temperature 98.2 F Pulse Rate 84 Respiratory 16 Rate Blood Pressure 148/90 [Left] O2 Sat by Pulse 99 Oximetry - Medical Decision Making CT head shows no acute intracranial abnormality. Patient stable for discharge home with return precautions. Critical care attestation.: If time is entered above; I have spent that time in minutes in the direct care of this critically ill patient, excluding procedure time. ED Disposition Clinical Impression: Minor head injury without loss of consciousness Disposition: 01 HOME / SELF CARE / HOMELESS Is pt being admited?: No Condition: Stable Instructions: Head Injury, Adult Time of Disposition: 14:12
--- NOTE | 2021-11-29 13:47 | Cat Scan Report ---
CT head/brain wo con INDICATION: Head injury. TECHNIQUE: Routine CT head without contrast. All CT scans at this location are performed using CT dose reduction for ALARA by means of automated exposure control. COMPARISON: 10/26/2020 FINDINGS: BRAIN / INTRACRANIAL CONTENTS: No acute hemorrhage, brain edema, mass effect, or hydrocephalus. Amalia l jane-white differentiation. There is stable severe confluent chronic small vessel ischemic change i n the cerebral white matter. CALVARIUM/SKULL BASE/CRANIOCERVICAL JUNCTION: No evidence of fracture. ORBITS: No significant abnormality of visualized orbits. SINUSES / MASTOIDS: No significant abnormality of visualized sinuses and mastoid air cells. ADDITIONAL FINDINGS: Stable soft tissue nodule overlying the right temporalis muscle, likely small ch ronic lymph node. Unchanged from the prior exam. IMPRESSION: 1. No acute post-traumatic intracranial abnormality. Signer Name: Damian De La Vega MD Signed: 11/29/2021 1:43 PM Workstation Name: [id number]
[2021-11-29 16:00] VITALS: BP 142/80
== END 2021-11-29 14:00 | disposition home or self-care (01) ==
LOC: ED 10:10
DX: S09.90XA Unspecified injury of head, initial encounter (principal); J44.9 Chronic obstructive pulmonary disease, unspecified; I12.0 Hypertensive chronic kidney disease with stage 5 chronic kidney disease or end stage renal disease; E11.22 Type 2 diabetes mellitus with diabetic chronic kidney disease; N18.6 End stage renal disease; Z99.2 Dependence on renal dialysis; Z88.8 Allergy status to other drugs, medicaments and biological substances; Z79.899 Other long term (current) drug therapy; V09.9XXA Pedestrian injured in unspecified transport accident, initial encounter; Y93.89 Activity, other specified; Y92.89 Other specified places as the place of occurrence of the external cause; Y99.8 Other external cause status
CPT/HCPCS: 70450; 99284